=== PATIENT | female | born 1945 | race Caucasian/White ===

== ENCOUNTER 2019-11-29 14:06 | Emergency (ER) | payer MEDICARE, OTHER ==
[~2019-11-29] VITALS: Ht 165.1 cm; Wt 86.2 kg
--- OUTSIDE RECORDS SUMMARY | 2019-11-29 15:33 | XMS REPORT | Continuity of Care Document ---
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 Name Role Phone [facility] [facility] Unavailable Un available Problems Problem Status Onset Date Classification Date Reported Comments Source Chronic Reflux Esophagitis Act tonya 04/29/2013 [facility] Hypertension Active 04/29/2013 [facility] Osteopenia Active 04/29/2013 [facility] Hyperlipidemia Active 04/29/2013 [facility] Vitamin B12 Deficiency Active 04/29/2013 [facility] Depression Active 04/29/2013 [facility] Medications Medication Details Route Status Patient Instructions Ordering Provider Order Date Source AmLODIPine Besylate 2.5 MG Oral Tablet ; Start Date: 01/19/2013; End Date: (Active) Active 01/19/2013 [facility] Valsartan-Hydrochlorothiazide 160-12.5 MG Oral Tablet ; Start Date: 01/19/2013 (Active) Active 01/19/2013 [facility] Evista 60 MG Oral Tablet ; Sta rt Date: 01/19/2013 (Active) Active 01/19/2013 [facility] Sertraline HCl 50 MG Oral Tablet ; Start Date: 01/19/2013 (Active) Active 01/19/2013 [facility] Omeprazole 20 MG Oral Capsule Delayed Release ; Start Date: 01/18/2013 (Active) Active 01/18/2013 [facility] AmLODIPine Besylate 5 MG Oral Tablet ; Start Date: ; End Date: (Active) Inactive [facility] Caltrate 600+D TABS (Active) Active [facility] Multivitamins CAPS (Active) Active [facility] Vitamin B-12 1000 MCG Oral Tablet (Active) Active [facility] Fish Oil 1200 MG Oral Capsule (Active) Active [facility] Acton-3 CAPS (Active) Active [facility] Herceptin 440 MG Intravenous Solution Reconstituted (Active) Active [facility] AmLODIPine Besylate 5 MG Oral Tablet (Active) Active [facility] Allergies, Adverse Reactions, Alerts Substance Category Reaction Severity Reaction type Status Date Reported Comments Source No Known Drug Allergies drug a llergy drug aller gy Active [facility] Immunizations Immunization Date Given Site Status Last Updated Comments Source Influenza 01/05/2012 completed [facility] Hepatitis A 02/07/2009 completed [facility] Tdap 07/28/2008 completed [facility] Hepatitis A 07/28/2008 completed [facility] Results No Data Provided for This Section Pathology Reports No Data Provided for This Section Diagnostic Reports No Data Provided for This Section Consultation Notes No Data Provided for This Section Discharge Summaries No Data Provided for This Section History and Physicals No Data Provided for This Section Vital Signs No Data Provided for This Section Encounters Location Location Details Encounter Type Encounter Number Reason For Visit Attending Provider ADM Date DC Date Status Source AUDIT [id number] 02/19/2013 02/19/2013 [facility] Layton BORREGO carlos: RUDY NUÑEZ, Status: Pen, Time: 11:00 AM [id number] 02/24/20 13 02/19/2013 [facility] AUDIT [id number] 02/23/2013 02/23/2013 [facility] AUDIT [id number] 04/29/2013 04/29/2013 [facility] Procedures No Data Provided for This Section Assessment and Plan No Data Provided for This Section Plan of Care Plan of Care Date Source [QLH] LIPID PANEL 02/23/2013 Routine[QLH ] TSH, 3RD GENERATION W/REFLEX TO FT4 02/23/2013 Routine[QLH] CMP W/EGFR 02/23/2013 Routine[Q] METHYLMALONIC ACID, GC/MS/MS 02/23/2013 Routine 02/23/2013 [facility] Social History Social History Date Source Being A Social Drinker (Active) No History of Tobacco Use (Denied) No History of Drug Use (Denied) Marital History - (V61.03); (Active) 04/29/2013 [facility] Family History Value Date S ource No Maternal history of Coronary Artery D isease (Denied) Maternal history of Breast Cancer (V16.3); (Active) Paternal history of Alzheimer Disease (Active) 04/29/2013 [facility] No Maternal history of Coronary Artery D isease (Denied) Maternal history of Breast Cancer (V16.3); (Active) Paternal history of Alzheimer Disease (Active) 02/23/2013 [facility] No Maternal history of Coronary Artery D isease (Denied) Maternal history of Breast Cancer (V16.3); (Active) 02/19/2013 [facility] Advance Directives Order Name Results Value Date Source Advance Directives Advance Dir ectives No Advance Directives available. 04/29/2013 [facility] Advance Directives Advance Dir ectives No Advance Directives available. 02/23/2013 [facility] Advance Directives Advance Dir ectives No Advance Directives available. 02/19/2013 [facility] Functional Status No Data Provided for This Section
--- OUTSIDE RECORDS SUMMARY | 2019-11-29 15:33 | XMS REPORT | Clinical Summary ---
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 Active valsartan-hydrochlorothia Take 1 tablet 0 zide (DIOVAN-HCT) by mouth. 160-12.5 mg per tablet Active calcium carbonate Take 600 mg 0 (OS-DAMASO) 600 mg calcium by mouth. (1,500 mg) tablet Active omeprazole (PriLOSEC) 40 0 MG capsule 9 Active sertraline (ZOLOFT) 50 MG 0 tablet 9 Active diclofenac (VOLTAREN) 1 % APPLY TO THE 2 04/25 gel LEFT FOREARM 9 QHS Active sodium chloride 0.9% Infuse into a 0 parenteral solution 250 venous mL with INV-trastuzumab catheter. (PF) (PRO [id number]/Matute) 440 mg recon soln Active Problems Problem Noted Date Complication of breast implant 11/04/2019 Carpal tunnel syndrome, left 06/16/2018 Brachial plexopathy 06/16/2018 Encounters Care Team Description Date Type Specialty Asad Rea MD 11/04/2019 Anesthesia General Surgery Event Miranda Mckeon MD LEFT BREAST I&D W/ INSERTION OF TISSUE E XPANDER AND PREVENA WOUND VAC PLACEMENT 11/04/2019 Surgery General Surgery Ashley Galindo MD Wegge, Jacqueline Marie, MD Complication of breast implant (Primary Dx) 11/04/2019 Emergency General Surgery after 11/28/2018 Surgical History Surgery Date Site/Laterality Comments BREAST SURGERY CARPAL TUNNEL RELEASE 01/24/[address] Jeanette oviedo - 02/23/2018 INSERTION OR REMOVAL, 11/04/2019 Breast/Left Procedur e: LEFT BREAST I&D W/ INSERTION OF TISSUE TISSUE FORM BUILDER, BREAST FORM BUILDER AND PREVENA WOUND VAC PLACEMENT; Surgeon: Miranda Mckeon MD; Location: [facility] OR; Service: Plastics; Lateralit y: Left; Medical devices from this surgery are i n the Implants section. 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 Brachial plexopathy 06/16/2018 Family History Medical History Relation Name Comments Alzheimer's disease Father Cancer Mother Relation Name Status Comments Father Mother Social History Date Tobacco Use Types Packs/Day Years Used Never Smoker Smokeless Tobacco: Never Used Sex Assigned at Date Recorded Not on file Last Filed Vital Signs Reading Time Taken Comments Vital Sign 138/65 11/04/2019 7:49 PM CDT Blood Pressure 89 11/04/2019 7:49 PM CDT Pulse 36.6 C (97.8 F) 11/04/2019 7:31 PM CDT Temperature 18 11/04/2019 7:49 PM CDT Respiratory Rate 99% 11/04/2019 7:49 PM CDT Oxygen Saturation - - Inhaled Oxygen Concentration - - Weight - - Height - - Body Mass Index Plan of Treatment Health Maintenance Due Date Last Done Comments BREAST CANCER SCREENING 1994 COLONOSCOPY SCREENING 1994 SHINGLES VACCINES (#1) 1994 65+ PNEUMOCOCCAL VACCINE 2009 (1 of 1 - PPSV23) INFLUENZA VACCINE 09/25/2019 Implants Device Identifier Shelf Expiration Date Model / Serial / L ot Implanted Type Area Manufactur er [id number] / [id number] / [id number] Biometric Technician Cpx 4 Breast Tissue With Plastic or Left: Breast MENTOR Suture Tab 450cc - [id number] - Cosmetic [employer] [id number] [employer] Implanted: Qty: 1 on 11/04/2019 by or Tissue Miranda Mckeon MD at [facility] or Sets Procedures Comments Procedure Name Priority Date/Time Associated Diag nosis GRAM STAIN Timed 11/04/2019 6:22 PM CDT AEROBIC CULTURE Timed 11/04/2019 6:22 PM CDT ANAEROBIC CULTURE Timed 11/04/2019 6:22 PM CDT CA AN ELECTIVE Routine 11/04/2019 SUPRAGLOTTIC AIRWAY 6:14 PM CDT INSERTION OR REMOVAL, 11/04/2019 LEFT BREAST EXP OSED TISSUE FORM BUILDER, BREAST 5:54 PM CDT IMPLANT ECG 12-LEAD Routine 11/04/2019 5:30 PM CDT ESTIMATED GFR STAT 11/04/2019 4:13 PM CDT TYPE AND SCREEN Routine 11/04/2019 4:13 PM CDT PARTIAL THROMBOPLASTIN STAT 11/04/2019 TIME (PTT) 4:13 PM CDT PROTHROMBIN TIME WITH INR STAT 11/04/2019 4:13 PM CDT COMPREHENSIVE METABOLIC STAT 11/04/2019 PANEL 4:13 PM CDT HC COMPLETE BLD COUNT STAT 11/04/2019 W/AUTO DIFF 4:13 PM CDT after 11/28/2018 Results * Aerobic culture (11/04/2019 6:22 PM CDT) Aerobic culture Escherichia coli [facility] isolate Few [facility] susceptibility to follow HOSPITAL (A) Comment: Specimen Information Specimen Source: Wound Specimen Site: Breast: LEFT BREAST SWAB Aerobic culture Morganella morganii [facility] isolate Few [facility] susceptibility to follow HOSPITAL (A) Aerobic culture Enterococcus faecalis [facility] isolate Recovered in Broth only: [facility] Enterococcus resistant to high HOSPITAL levels of Gentamicin. Susceptibility results do not indicate synergy with Penicillins and Vancomycin. This organism is Vancomycin Sensitive. (A) Specimen Fluid - Breast Antibiotic Method Susceptibility Organism Ampicillin ASAD >16 mcg/mL: Resistant Escherichia coli Amoxicillin/Clavulanate ASAD 16/8 mcg/mL: Resistant Escherichia coli Amikacin ASAD <=8 mcg/mL: Susceptible Escherichia coli Aztreonam ASAD <=2 mcg/mL: Susceptible Escherichia coli Ceftazidime ASAD <=2 mcg/mL: Susceptible Escherichia coli Ciprofloxacin ASAD >2 mcg/mL: Resistant Escherichia coli Ceftriaxone ASAD <=1 mcg/mL: Susceptible Escherichia coli Cefuroxime Sodium ASAD 8 mcg/mL: Susceptible Escherichia coli Cefazolin ASAD 8 mcg/mL: Resistant Escherichia coli Cefepime ASAD <=1 mcg/mL: Susceptible Escherichia coli Cefoxitin ASAD <=4 mcg/mL: Susceptible Escherichia coli Gentamicin ASAD <=2 mcg/mL: Susceptible Escherichia coli Levofloxacin ASAD >4 mcg/mL: Resistant Escherichia coli Meropenem ASAD <=0.5 mcg/mL: Susceptible Escherichia coli Tobramycin ASAD >8 mcg/mL: Resistant Escherichia coli Ampicillin/Sulbactam ASAD >16/8 mcg/mL: Resistant Escherichia coli Trimethoprim/Sulfamethoxazole ASAD <=0.5/9.5 mcg/mL: Susceptible Escherichia coli Tetracycline ASAD <=2 mcg/mL: Susceptible Escherichia coli Piperacillin/Tazobactam ASAD 16/4 mcg/mL: Susceptible Escherichia coli Ertapenem ASAD <=0.25 mcg/mL: Susceptible Escherichia coli Tigecycline ASAD <=1 mcg/mL: Susceptible Escherichia coli Ampicillin ASAD >16 mcg/mL: Resistant Morganella morganii Amoxicillin/Clavulanate ASAD >16/8 mcg/mL: Resistant Morganella morganii Amikacin ASAD <=8 mcg/mL: Susceptible Morganella morganii Aztreonam ASAD <=2 mcg/mL: Susceptible Morganella morganii Ceftazidime ASAD <=2 mcg/mL: Susceptible Morganella morganii Ciprofloxacin ASAD <=0.25 mcg/mL: Susceptible Morganella morganii Ceftriaxone ASAD <=1 mcg/mL: Susceptible Morganella morganii Cefuroxime Sodium ASAD >16 mcg/mL: Resistant Morganella morganii Cefazolin ASAD >16 mcg/mL: Resistant Morganella morganii Cefepime ASAD <=1 mcg/mL: Susceptible Morganella morganii Cefoxitin ASAD 8 mcg/mL: Susceptible Morganella morganii Gentamicin ASAD <=2 mcg/mL: Susceptible Morganella morganii Levofloxacin ASAD <=0.5 mcg/mL: Susceptible Morganella morganii Meropenem ASAD >8 mcg/mL: Resistant Morganella morganii Tobramycin ASAD <=2 mcg/mL: Susceptible Morganella morganii Ampicillin/Sulbactam ASAD 16/8 mcg/mL: Resistant Morganella morganii Trimethoprim/Sulfamethoxazole ASAD <=0.5/9.5 mcg/mL: Susceptible Morganella morganii Tetracycline ASAD <=2 mcg/mL: Resistant Morganella morganii Piperacillin/Tazobactam ASAD 32/4 mcg/mL: Resistant Morganella morganii Ertapenem ASAD >2 mcg/mL: Resistant Morganella morganii Tigecycline ASAD mcg/mL: Resistant Morganella morganii Ceftazidime-Avibactam ASAD >8/4 mcg/mL: Resistant Morganella morganii Meropenem/Vaborbactam ASAD >16/8 mcg/mL: Resistant Morganella morganii Ampicillin ASAD 1 mcg/mL: Susceptible Enterococcus faecalis Erythromycin ASAD >4 mcg/mL: Resistant Enterococcus faecalis Gentamicin-Syn ASAD >500 mcg/mL: Resistant Enterococcus faecalis Linezolid ASAD 2 mcg/mL: Susceptible Enterococcus faecalis Minocycline ASAD >8 mcg/mL: Resistant Enterococcus faecalis Vancomycin ASAD 1 mcg/mL: Susceptible Enterococcus faecalis Performing Organization Address City/[facility] [address]/ZIP Code [place] Number [facility] [place] [address] PATHOLOGY AND [facility] MEDICINE [place] [facility] [address] [place] [address] * Gram stain (11/04/2019 6:22 PM CDT) Gram stain Occasional WBC's [place] isolate No organisms seen [facility] Comment: HOSPITAL Specimen Information Specimen Source: Wound Specimen Site: Breast: LEFT BREAST SWAB Specimen Wound Performing Organization Address [facility] [address]/ZIP [facility] P [place]arien Number [facility] [place] [address] PATHOLOGY AND GENOMIC MEDICINE [place] [facility] [address] [place] [address] * Anaerobic culture (11/04/2019 6:22 PM CDT) Anaerobic No anaerobic organisms [place] culture isolate isolated. [facility] Comment: HOSPITAL Specimen Information Specimen Source: Wound Specimen Site: Breast: LEFT BREAST SWAB Specimen Fluid - Breast Performing Organization Address City/[facility] [address]/ZIP Code [place] Number [facility] [place] [address] PATHOLOGY AND [facility] MEDICINE [place] [facility] [address] [place] [address] * Airway (11/04/2019 6:14 PM CDT) Narrative Performed At Aashish Mccall CRNA 11/04/2019 6:1 4 PM Airway Performed by: Aashish Mccall CRNA Authorized by: Asad Rea MD Location: OR Urgency: Elective Difficult Airway: No Anesthesiologist: Charly Rea MD Resident/ECONOMIC HISTORY TEACHER/AA: Aashish Mccall CRNA Performed by: resident/ECONOMIC HISTORY TEACHER/AA Preoxygenated with 100% O2: Yes Mask Ventilation: Not attempted Final Airway Type: Supraglottic airwa y Final LMA: Unique LMA Size: 4 Number of Attempts at Approach: 1 Atraumatic insertion * ECG 12 lead (11/04/2019 5:30 PM CDT) Ventricular 100 [facility] rate Atrial rate 100 [facility] CA interval 130 [facility] QRSD interval 80 [facility] QT interval 336 [facility] QTC interval 433 [facility] P axis 1 62 [facility] QRS axis 1 11 [facility] T wave axis 47 [facility] EKG impression Sinus rhythm with fusion [facility] complexes-Otherwise normal ECG-No previous ECGs available- Specimen Narrative Performed At This result has an attachment that is n ot available. Performing Organization Address City/State/ZIP Code P [place] Number [facility] MUSE [address] [place] [address] * Estimated GFR (11/04/2019 4:13 PM CDT) Pathologist [facility] Estimated GFR 63 mL/min/1.73 m2 [place] Comment: [facility] CLEAR [facility] Interpretation G1 >=90 Normal or high G2 60-89 Mildly decreased G3a 45-59 Mildly to moderately decreased G3b 30-44 Moderately to severely decreased G4 15-29 Severely decreased G5 <15 Kidney failure The eGFR was calculated using the Chronic Kidney Disease Epidemiology Collaboration (CKD-EPI) equation. Interpretation is based on recommendations of the National Kidney Foundation-Kidney Disease Outcomes Quality Initiative (NKF-KDOQI) published in 2014. Specimen Performing Organization Address City/State/ZIP Code [place] Number [facility] [place] [id number] [place] [address] [place], [place] [address] PATHOLOGY AND GENOMIC MEDICINE [place] [id number] [place] [address] [place] [address] [facility] [place] * Partial thromboplastin time, activated (11/04/2019 4:13 PM CDT) Pathologist [facility] PTT 27.0 23.0 - 36.0 sec [place] Comment: [facility] PTT therapeutic range for [facility] [place] unfractionated heparin is 61.0-112.0 seconds which corresponds to Anti-Xa 0.3-0.7 U/ml. Specimen Blood Performing Organization Address City/[facility] [address]/ZIP [facility] P [place]arien Number [facility] DE[facility]MENT OF [address] [place] [address] PATHOLOGY AND GENOMIC MEDICINE [address] * Prothrombin time with INR (11/04/2019 4:13 PM CDT) [facility] Prothrombin 14.4 11.5 - 14.5 sec [facility] INR 1.1 [place] Comment: [facility] The International Normalized [facility] [place] Ratio (INR) is a therapeutic monitoring tool for patients who are stable on oral anticoagulant therapy. An INR of 2.0-3.0 is suggested for deep vein thrombosis/pulmonary embolism. Specimen Blood Performing Organization Address City/[facility] [address]/[facility] P [place] Number [facility] OF [address] [place] [address] PATHOLOGY AND [facility] MEDICINE [address] * CBC with platelet and differential (11/04/2019 4:13 PM CDT) [facility] WBC 7.03 4.50 - 11.00 k/uL [facility] RBC 3.24 (L) 4.20 - 5.50 m/uL [facility] HGB 9.0 (L) 12.0 - 16.0 g/dL [facility] HCT 29.3 (L) 37.0 - 47.0 % [facility] MCV 90.4 82.0 - 100.0 fL [facility] MCH 27.8 27.0 - 34.0 pg [facility] MCHC 30.7 (L) 31.0 - 37.0 g/dL [facility] RDW - SD 63.2 (H) 37.0 - 55.0 fL [facility] MPV 9.1 8.8 - 13.2 fL [facility] Platelet count 294 150 - 400 k/uL [facility] Nucleated RBC 0.00 /100 WBC [facility] Neutrophils 69.6 (H) 39.0 - 69.0 % [facility] Lymphocytes 16.1 (L) 25.0 - 45.0 % [facility] Monocytes 11.7 (H) 0.0 - 10.0 % [facility] Eosinophils 1.3 0.0 - 5.0 % [facility] Basophils 0.9 0.0 - 1.0 % [facility] Specimen Blood Performing Organization Address [facility] [address]/[facility] P [place] Number [address] [place] [address] PATHOLOGY AND GENOMIC MEDICINE [address] * Type and screen (11/04/2019 4:13 PM CDT) Pathologist [facility] ABO grouping O [facility] Rh type POS [facility] Antibody screen NEG [place] (gel) [facility] Specimen Blood Performing Organization Address [facility] [address]/[facility] P [place]ari[place] Number [address] [place] [address] PATHOLOGY AND GENOMIC MEDICINE [address] * Comprehensive metabolic panel (11/04/2019 4:13 PM CDT) Sodium 137 135 - 148 mEq/L [facility] Potassium 3.4 (L) 3.5 - 5.0 mEq/L [facility] Chloride 100 98 - 112 mEq/L [facility] CO2 27 24 - 31 mEq/L [facility] Anion gap 10@ANIO 7 - 15 mEq/L [facility] BUN 10 8 - 23 mg/dL [facility] Creatinine 0.90 0.50 - 0.90 mg/dL [facility] Glucose 104 (H) 65 - 99 mg/dL [facility] Calcium 10.2 8.8 - 10.2 mg/dL [facility] Protein 8.2 6.3 - 8.3 g/dL [place] Comment: [facility] Bells 4.6-7.0 g/dL 1 week 4.4-7.6 g/dL 7 months-1year 5.1-7.3 g/dL 1-2 years 5.6-7.5 g/dL >3 years 6.0-8.0 g/dL 18-150 6.3-8.3 g/dL Albumin 4.4 3.5 - 5.0 g/dL [facility] A/G ratio 1.2 0.7 - 3.8 [facility] Alkaline 114 (H) 35 - 104 U/L [place] phosphatase [facility] AST 25 10 - 35 U/L [facility] ALT 16 5 - 50 U/L [facility] Total bilirubin 0.6 0.0 - 1.2 mg/dL [facility] Specimen Blood Performing Organization Address City/State/ZIP Code [place] [facility] [address] [place], [place] [address] PATHOLOGY AND GENOMIC MEDICINE [facility] [address] [place] [address] [facility] [place] after 11/28/2018 Insurance Type Payer Benefit Subscriber ID Effective Phone Address Plan / Dates Group Medicare MEDICARE MEDICARE [id number] 2009-P BUDDY, PART A AND resent [place] B Commercial [employer] M[employer] OF [id number] 2010-P CARI loco Advance Directives For more information, please contact: [phone] 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
--- OUTSIDE RECORDS SUMMARY | 2019-11-29 15:34 | XMS REPORT | Continuity of Care Document ---
Author Author [facility] t Organization [facility] Address [address] [place] [address] Phone Unavailable Care Team Providers Care Channel Marketing Coordinator Name Role Phone Fely WHITMAN, Emily Suarez PCP Mateo WHITMAN, Elaina Ramirez Attphys Mike WHITMAN, Emily Jean Attphys [phone] Álvaro WHITMAN, Scotty Kamara Attphys [phone] Payers Payer Name Policy Type Policy Number Effective Date Expiration Date S momo MEDICAREMEDICARE PART A AND [id number] 2009-PresentHOUS HEENA TXMedicare [id number] 2009 00:00:00 [place] [facility] MUTUAL OF OMAHAMUTUAL OF [id number] 2010-PresentCommercia l [id number] 2010 00:00:00 [place] [facility] Problems Condition Name Condition Details Condition Category Status Onset Date Resolution Date Last Treatment Date Treating Clinician Comments Source 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 Disea se Active 2019-11-04 00:00:00 Kasi Allen Carpal tunnel syndrome, left Carpal tunnel syndrome, left Disease Active 2018-06-16 00:00:00 Kasi Allen Brachial plexopathy Brachial plexopathy Disease Active 2018-06-16 00:00 :00 Kasi Allen Chronic Reflux Esophagitis Chr onic Reflux Esophagitis Active 04/29/2013 [facility] Problem Active 2013-04-29 16:35: 01 Stephanie Tatum Hypertension Hype rtension Active 04/29/2013 [facility] Problem Active 2013-04-29 16:35:01 Enmanuel lashaunl Rc Osteopenia Oste openia Active 04/29/2013 [facility] Problem Active 2013-04-29 16:35:01 Stephanie Tatum Hyperlipidemia Hype rlipidemia Active 04/29/2013 [facility] Problem Active 2013-04-29 16:35:01 M emoriamor Tatum Vitamin B12 Deficiency Stacey min B12 Deficiency Active 04/29/2013 [facility] Problem Active 2013-04-29 16:35:01 Stephanie Tatum Depression Depr ession Active 04/29/2013 [facility] Problem Active 2013-04-29 16:35:01 [address] Allergies, Adverse Reactions, Alerts Allergy Name Allergy Type Status Severity Reaction(s) Onset Date Inacti ve Date Treating Clinician Comments Source No Known Drug Allergies DA Active U 2019-10-11 00:00:00 [facility] adhesive DA Active [place] 2019-10-11 00:00:00 [facility] No Known Drug Allergies DA Active U 2019-10-07 00:00:00 [facility] adhesive DA Active [place] 2019-03-22 00:00:00 [facility] adhesive DA Active [place] 2018-07-31 00:00:00 [facility] latex DA Active SV 2017-11-12 00:00:00 [facility] adhesive DA Active [place] 2017-10-15 00:00:00 [facility] Latex Propensity to adverse reactions to drug Active Hives, Rash 2015-04-06 00:00:00 Kasi ramirez No Known Drug Allergies No Known Drug Allergies Active [facility] Family History Family Member Diagnosis Comments Start Date Stop Date Source Natural father Alzheimer's disease H debra Easonist Natural mother Cancer [facility] thodist Unknown Family Member Family History 2013-02-19 20:48:48 2 20:48:48 Stephanie Tatum Social History Social Habit Start Date Stop Date Quantity Comments Source Sex Assigned At [facility] Tobacco use and exposure 2019-11-05 00:00:00 2019-11-05 00:00:00 Farnaz smiley used Kasi Allen Social History 2013-04-29 16:35:01 2013-04-29 16:35:01 Stephanie Tatum Smoking Status Start Date Stop Date Source Never smoker Kasi ramirez Medications Ordered Medication Name Filled Medication Name Start Date Stop Da te Current Medication? Ordering Clinician Indication Dosage Frequency Signature (SIG) Comments Components Source raloxifene (EVISTA) 60 mg tablet 2019-11-04 20:16:40 Yes 60mg Take 60 mg by mouth. Kais Allen valsartan-hydrochlorothiazide (DIOVAN-HCT) 160-12.5 mg per t ablet 2019-11-04 20:16:40 Yes 1{tbl} Take 1 tablet by mouth. Kasi Allen calcium carbonate (OS-DAMASO) 600 mg calcium (1,500 mg) tablet 2019-11-04 20:16:40 Yes 600mg Take 600 mg by mouth. Kasi Allen sodium chloride 0.9% parenteral solution 250 mL with INV-trastuzumab (PF) (PRO [id number]/Matute) 440 mg recon soln 2019-11-04 20:16:40 Yes Infuse into a venous catheter. Kasi ramirez sertraline (ZOLOFT) 50 MG tablet 2018-06-04 00:00:00 Yes Kasi Allen LYRICA 225 mg capsule 2018-06-02 00:00:00 Yes TK 1 C PO D Kasi Allen omeprazole (PriLOSEC) 40 MG capsule 2018-05-29 00:00:00 Yes Kasi Allen diclofenac (VOLTAREN) 1 % gel 2018-05-21 00:00:00 Yes APPLY TO THE LEFT FOREARM QHS Kasi Allen Caltrate 600+D TABS 2013-04-29 16:35:01 Yes (Active) Stephanie Tatum Multivitamins CAPS 2013-04-29 16:35:01 Yes (Active) Stephanie Tatum Vitamin B-12 1000 MCG Oral Tablet 2013-04-29 16:35:01 Yes (Active) Stephanie Tatum Fish Oil 1200 MG Oral Capsule 2013-04-29 16:35:01 Yes (Active) Stephanie Tatum Garrett-3 CAPS 2013-04-29 16:35:01 Yes (Activ e) Stephanie Tatum Herceptin 440 MG Intravenous Solution Reconstituted 04-29 16:35:01 Yes (Active) Stephanie aguilera AmLODIPine Besylate 5 MG Oral Tablet 2013-04-29 16:35:01 Ye s (Active) Stephanie Tatum AmLODIPine Besylate 2.5 MG Oral Tablet 2013-01-19 06:00:00 Yes ; Start Date: 01/19/2013; End Date: (Active) Stephanie Tatum Valsartan-Hydrochlorothiazide 160-12.5 MG Oral Tablet 2013-01-19 06:00:00 Yes ; Start Date: 01/19/2013 (Active) Stephanie Tatum Evista 60 MG Oral Tablet 2013-01-19 06:00:00 Yes ; Start Date: 01/19/2013 (Active) Stephanie Tatum Sertraline HCl 50 MG Oral Tablet 2013-01-19 06:00:00 Yes ; Start Date: 01/19/2013 (Active) Stephanie Harvey nn Omeprazole 20 MG Oral Capsule Delayed Release 2013-01-18 06:00:0 0 Yes ; Start Date: 01/18/2013 (Active) Stephanie Tatum AmLODIPine Besylate 5 MG Oral Tablet Ye s ; Start Date: ; End Date: (Active) Stephanie Tatum Vital Signs Vital Name Observation Time Observation Value Comments Source Systolic blood pressure 2019-11-04 19:49:00 138 mm[Hg] Kasi Allen Diastolic blood pressure 2019-11-04 19:49:00 65 mm[Hg] Kasi Allen Heart rate 2019-11-04 19:49:00 89 /min Kasi Allen Respiratory rate 2019-11-04 19:49:00 18 /min Orestes Allen Oxygen saturation in Arterial blood by Pulse oximetry 11-03 19:49:00 99 /min Kasi Allen Body temperature 2019-11-04 19:31:00 36.56 Rola Orestes Allen Procedures Procedure Date / Time Performed Performing Clinician Agatha wilde ANAEROBIC CULTURE 2019-11-04 18:22:00 Miranda Girard AEROBIC CULTURE 2019-11-04 18:22:00 Miranda Girard GRAM STAIN 2019-11-04 18:22:00 Miranda Girard RI AN ELECTIVE SUPRAGLOTTIC AIRWAY 2019-11-04 18:14:32 Jens Mccall INSERTION OR REMOVAL, TISSUE MACHINE OR MACHINERY MECHANIC, BREAST 2019-11-04 17: 54:00 Miranda Girard ECG 12-LEAD 2019-11-04 17:30:37 Ashley Galindo Elaina Lucia ethodist HC COMPLETE BLD COUNT W/AUTO DIFF 2019-11-04 16:13:00 Hukellie, Kari in Elaina Allen COMPREHENSIVE METABOLIC PANEL 2019-11-04 16:13:00 Ashley Galindo I clemente Allen PROTHROMBIN TIME WITH INR 2019-11-04 16:13:00 Hukellie, Ashley Allen PARTIAL THROMBOPLASTIN TIME (PTT) 2019-11-04 16:13:00 Hukellie, Kari in Elaina [facility] TYPE AND SCREEN 2019-11-04 16:13:00 Ashley Galindo Villaseñor Khari ethodist ESTIMATED GFR 2019-11-04 16:13:00 Hukellie Ashley Villaseñor ethodist Plan of Care Planned Activity Planned Date Details Comments Source Future Scheduled Test 2019-09-25 00:00:00 INFLUENZA VACCINE [code = INFLUENZA VACCINE] [facility] Future Scheduled Test 2013-02-23 17:47:49 Plan of Care [code = 1877 6-5] [facility] Future Scheduled Test 2009 00:00:00 65+ PNEUMOCOCCAL V ACCINE (1 of 1 - PPSV23) [code = 65+ PNEUMOCOCCAL VACCINE (1 of 1 - PPSV23)] [facility] Future Scheduled Test 1994 00:00:00 BREAST CANCER SCRE ENING [code = BREAST CANCER SCREENING] [facility] Future Scheduled Test 1994 00:00:00 COLONOSCOPY SCREEN ING [code = COLONOSCOPY SCREENING] [facility] Future Scheduled Test 1994 00:00:00 SHINGLES VACCINES (#1) [code = SHINGLES VACCINES (#1)] [place] [facility] Encoun[facility] Start Date/Time End Date/Time Encounter Type Admission Type [facility] Care Department Encounter ID Source 2019-11-04 00:00:00 2019-11-04 00:00:00 Outpatient RACHNA GIRARD [facility] [place] [id number] [place] [facility] 2013-04-29 10:35:01 2013-04-29 10:35:01 Outpatient STORMY BURROWS [id number] 2013-02-23 11:47:49 2013-02-23 11:47:49 Outpatient STOR[facility] BURROWS [id number] 2013-02-19 14:48:48 2013-02-19 14:48:48 Outpatient STORMY BURROWS [id number] Results Test Description Test Time Test Comments Results Result Comments Source Anaerobic culture 2019-11-09 09:23:40 Test Item Anaerobic culture isolate (test code = 552) No anaerobic organis ms isolated. Specimen InformationSpecimen Source: Wou ndSpecimen Site: Breast: LEFT BREAST SWAB [facility] SikhGram [id number] 05:41:28Gram stain isolateOccasional WBC'sNo organisms seen Comment: Specimen InformationSpecimen Source: WoundSpecimen Site: Breast: [facility] [id number] 13:06:56* Test Item Value Reference Range Interpretation Comments Ventricular rate (test code = 253) 100 Atrial rate (test code = 255) 100 RI interval (test code = 266) 130 QRSD interval (test code = 260) 80 QT interval (test code = 264) 336 QTC interval (test code = 265) 433 P axis 1 (test code = 267) 62 QRS axis 1 (test code = 268) 11 T wave axis (test code = 270) 47 EKG impression (test code = 273) Sinus rhythm with fus ion complexes-Otherwise normal ECG-No previous ECGs available- [place] [id number] 18:14:32Aashish Mccall CRNA 11/04/2019 6:14 PMAirwayPerformed by: Aashish Mccall CRNAAuthorized by: Asad Rea MD Location: ORUrgency: ElectiveDifficult Airway: No Anesthesiologist: Asad Rea, CELESTINEesident/SHEAR TENDER/AA: Ali, Aashish, CRNAPerformed by: resident/SHEAR TENDER/AAPreoxygenated with 100% O2: Yes Mask Ventilation: Not attemptedFinal Airway Type: Supraglottic airwayFinal LMA: UniqueLMA Size: 4Number of Attempts at Approach: 1 Atraumatic insertion Villaseñor MethodistType and [id number] 16:56:00* Test Item Value Reference Range Interpretation Comments ABO grouping (test code = 883-9) O Rh type (test code = 29133-3) POS Antibody screen (gel) (test code = 890-4) NEG [place] MethodistComprehensive metabolic [id number] 16:46:36* Test Item Value Reference Range Interpretation Comments Sodium (test code = 2951-2) 137 135- 148 mEq/L Potassium (test code = 2823-3) 3.4 3.5- 5.0 mEq/L L Chloride (test code = 2075-0) 100 98- 112 mEq/L CO2 (test code = 2027-9) 27 24- 31 mEq/L Anion gap (test code = 88347-3) 10@ANIO 7- 15 mEq/L BUN (test code = 3094-0) 10 mg/dL 8-23 Creatinine (test code = 2160-0) 0.90 mg/dL 0.5-0.9 Glucose (test code = 2345-7) 104 mg/dL 65-99 H Calcium (test code = 01934-3) 10.2 mg/dL 8.8-10.2 Protein (test code = 2885-2) 8.2 g/dL 6.3-8.3 -[place] 4.6- 7.0 g/dL1 week 4.4-7.6 g/dL7 months-1year 5.1-7.3 g/dL1-2 years 5.6-7.5 g/dL>3 years 6.0-8.0 g/wO32-259 6.3-8.3 g/dL Albumin (test code = 1751-7) 4.4 g/dL 3.5-5 A/G ratio (test code = 1759-0) 1.2 0.7-3.8 Alkaline phosphatase (test code = 6768-6) 114 U/L 35-104 H AST (test code = 1920-8) 25 U/L 10-35 ALT (test code = 1742-6) 16 U/L 5-50 Total bilirubin (test code = 1975-2) 0.6 mg/dL 0-1.2 Lab Interpretation (test code = 49508-9) Abnormal [place] MethodistEstimated [id number] 16:46:35* Test Item Value Reference Range Interpretation Comments Estimated GFR (test code = 5488) 63 mL/min/1.73 m2 Catergory Units InterpretationG1 >=90 Normal or highG2 60-89 Mildly yvjxxacbwQ4l 45-59 Mildly to moderately hbyoulfzsU5v 30-44 Moderately to severely decreasedG4 15-29 Severely decreasedG5 <15 Kidney failureThe eGFR was calculated using the Chronic Kidney Disease Epidemiology Collaboration (CKD-EPI) equation. Interpretation is based on recommendations of the National Kidney Foundation-Kidney Disease Outcomes Quality Initiative (NKF-KDOQI) published in 2014. [place] MethodistProthrombin time with [id number] 16:36:35* Test Item Value Reference Range Interpretation Comments Prothrombin time (test code = 5902-2) 14.4 11.5- 14.5 sec INR (test code = 21152-2) 1.1 Th e International Normalized Ratio (INR) is a therapeutic monitoring tool for patients who are stable on oral anticoagulant therapy. An INR of 2.0-3.0 is suggested for deep vein thrombosis/pulmonary embolism. [place] MethodistPartial thromboplastin time, [id number] 16:36:35* Test Item Value Reference Range Interpretation Comments PTT (test code = 89759-2) 27.0 23.0- 36.0 sec PTT therapeutic range for unfractionated heparin is61.0-112.0 seconds which corresponds to Anti-Xa0.3-0.7 U/ml. [place] MethodistCBC with platelet and apkqsxbqnppg2607-63-71 16:28:30* Test Item Value Reference Range Interpretation Comments WBC (test code = 16708-4) 7.03 4.50- 11.00 k/uL RBC (test code = 33337-9) 3.24 m/uL 4.2-5.5 L HGB (test code = 718-7) 9.0 g/dL 12-16 L HCT (test code = 4544-3) 29.3 % 37-47 L MCV (test code = 787-2) 90.4 fL 82-100 MCH (test code = 785-6) 27.8 pg 27-34 MCHC (test code = 786-4) 30.7 g/dL 31-37 L RDW - SD (test code = 09200-6) 63.2 fL 37-55 H MPV (test code = 34914-6) 9.1 fL 8.8-13.2 Platelet count (test code = 39478-6) 294 150- 400 k/uL Nucleated RBC (test code = 55409-6) 0.00 /100 WBC Neutrophils (test code = 56427-6) 69.6 % 39-69 H Lymphocytes (test code = 82865-0) 16.1 % 25-45 L Monocytes (test code = 26910-2) 11.7 % 0-10 H Eosinophils (test code = 71879-1) 1.3 % 0-5 Basophils (test code = 66778-4) 0.9 % 0-1 Lab Interpretation (test code = 25646-5) Abnormal [facility]- XR FLUORO FOR SPINE [id number] 12:19:00 Patient Name: SUZETTE MARTINEZ Unit No: [id number] EXAMS: CPT CODE: [id number] XR FLUORO FOR SPINE INJ 16429 CERVICAL TRANSFORAMINAL INJECTION REFERRING PHYSICIAN: PREOPERATIVE DIAGNOSIS: Cervical radiculitis POSTOPERATIVE DIAGNOSIS: Left cervical radiculopathy PROCEDURES PERFORMED: Fluoroscopically guided needle localization of the left C6, left C7 spinal nerves with transforaminal epidural steroid injection/injections. 2. Transforaminal epidurogram/epidurograms at left C6, left C7 FINDINGS: Poor filling all. Concordant provocation left C7 arm, left C6 shoulder. Pain relief-100%. ANTIBIOTICS:Cefazolin ESTIMATED BLOOD LOSS: Minimal ANESTHESIA: (TIVA ) Total intrav enous anesthetic (patient intolerant to sedatives and hypnotics) COMPLICATIONS: None DETAILS OF PROCEDURE: After obtaining sta ble vital signs, informed consent and IV access, with no known contraindic ations to proceeding, the patient was taken to the fluoroscopy suite and p laced in a supine position with all extremities padded and appropriate mon itors placed. A sterile prep and drape was performed over the cervical spi ne. Using fluoroscopic visualization at each level the insertion s ite was marked for a paravertebral approach to the foramen. Using standard technique, a 27gauge needle was advanced to the base of the pedicle. In AP view, final positioning was obtained outside the 6 on a clock posi tion on the pedicle. Then, 0.5 ml of Isovue-300 contrast was injected to p roduce the epidurograms. No paresthesias were elicited with needle inserti on or injection and there were no signs of intravascular or intrathecal up take. Then, 0.5 ml of 4% lidocaine was injected as a test dose with no sig ns of intravascular or intrathecal uptake. Next, 10 mg of Decadron was injected incrementally with frequent negative aspirations.Each subsequent cervical nerve root sleeve was done with the same technique and medication s were used.There were no signs of intravascular or intrathecal uptake. Th e patient's vital signs remained stable. The patient was taken to the PACU in good condition. [facility] NAME: SUZETTE GONSALVES [address] [place] [address] PHYS: Chandana Forman MD [place] [address] : 1945 A GE: 74 SEX: F L OC: [place] PHONE #: [phone] EXAM DATE: 10/11/2019 STATU S: [facility] FAX #: [phone] RAD #: D/C DT PAGE 1 Signed Report (CONTIN UED) Patient Name: SUZETTE MARTINEZ Unit No: [id number] EX AMS: CPT CODE: [id number] XR FLUORO FOR SPINE INJ 28918 <Continued> at 1219 Reported and signed by: Chandana Medrano M.D. CC: Technologist: Maegan Rajput(R) Transcribed D/ (2139) Ezequiel [facility] NAME: SUZETTE MARTINEZ [address] [place] [address] PHYS: Chandana Forman MD [place], [place] [address] : 1945 AGE: 74 SEX: F LOC: [place] PHONE #: [phone] EXAM DATE: 10/11/2019 STATUS: [facility] FAX #: [phone] RAD #: D/C DT PAGE 2 S igned Report Patient Name: SUZETTE MARTINEZ Unit No: [id number] EXAMS: CPT CODE: [id number] XR FLUORO FOR SPINE INJ 7 7000 <Continued> Orig Print D/T: S: 10/11/2019 (1222) [facility] NAME: SUZETTE MARTINEZ [address] [facility] PHYS: DOCUD - Doctor,Chandana Dao MD [place], [place] [address] : 1945 AGE: 74 SEX: F LOC: [place] PHONE #: [phone] EXAM DATE: 10/11/2019 STATUS: [facility] FAX #: [phone] RAD #: D/C DT PAGE 3 Signed Report [id number] 14:51:00 RUN DATE: 10/01/19 [place] - Lab PAGE 1 RUN TIME: 1452 Specimen Inqui ry RUN USER: INTERFACE PATIENT: SUZETTE MARTINEZ ACCT #: [id number] LOC: [facility] U #: [id number] AGE/SX: 74/F ROOM: RE09/30/19REG DR: Miranda Girard MD : 43 BED: DIS: STATUS: [facility] TLOC: SPEC #: [id number] RECD: 09/30/19 STATUS: JHON REElinor #: [id number] HA: 09/30/19- SUBM DR: Miranda Girard MD ENTERED: 09/30/19 SP TYPE: BREAST OTHR DR: Daniela Turcios MD ORDERED: [place]OSS [place]: [place] [id number] [place] [address] Miranda Girard MD [address] [address] PROCEDURES: GROSS (-1410) TISSUES: 1. LEFT BREAST, NOS - FLAP 2. 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 FINAL DI AGNOSIS Left breast flap, excision: ADIPOSE TISSUE WITH FIBROSIS AND A TROPHIC SKELETAL MUSCLE NEGATIVE FOR MALIGNANCY Left breast skin, e xcision: SKIN WITH SOME FOCAL FOREIGN BODY GIANT CELL REACTION NEG ATIVE FOR MALIGNANCY DMW/gm D 93717, [address]43 CONTINUED ON NEXT PAGE RUN DATE: 10/01/19 [place] [facility] PAGE 2 RUN TIME: 1452 Specimen Inquiry RUN USER: INTERFACE SPEC #: [id number] PATIENT: SUZETTE MARTINEZ #[id number] (Continue d) MACROSCOPIC Specimen (1) is received in formalin la beled with the patient's name, "left breast flap" and consists of an unoriente d portion of yellow lobulated fatty breast tissue measuring 11.0 x 10.0 by up to 3.2 cm. Smooth glistening pink-mendes tissue resembling capsule is present on one surface. This measures 6.5 x 4.0 cm in area. Sectioning through the ti ssue shows fatty breast parenchyma with a minimal amount of fibrous tissue. N o focal lesions are identified. Ink code: Blue, surgical margin S ection code: 1A, section with capsule; 1B, section with capsule and fibrous t issue. Specimen (2) is received in formalin labeled with the patient's nam e, "left breast skin" and consists of multiple portions of light mendes-pink skin measuring 6.0 x 5.0 by up to 1.7 cm in aggregate. The individual ellipses me asure up to 7.0 x 0.6 x 0.2 cm. No focal lesions are identified. Representa tive portions of tissue are submitted as (2). GROSS PERFORMED AT [facility] [address] [place] [address] (P)[phone] MICROSCOPIC All of the sta ins, including any controls performed, stain appropriately. MICROSCOPIC PERFORMED AT [facility] [address] [place] [address] (P)[phone] PERFORMING SITE Proc essed at: [facility] [address] [place] [address] [phone] CONTINUED ON NEXT PAGE -RUN DATE: 10/01/19 [place] - Lab PAGE 3 RUN TIME: 1451 Specimen Inquiry RUN USER: INTERFACE SPEC #: [id number] PATIENT: SUZETTE MARTINEZ #[id number] (Continued) Signed SIGNATURE ON F ILE Gavi Booker MD 10/01/19 1451 END OF REPORT COMPREHENSIVE METABOLIC [id number] 11:58:00* Test Item Value Reference Range Interpretation Comments SODIUM (test code = NA) 139 mmol/L 136-145 N POTASSIUM (test code = K) 3.7 mmol/L 3.5-5.1 N CHLORIDE (test code = CL) 103.0 mmol/L 98-107 N CARBON DIOXIDE (test code = CO2) 29.0 mmol/L 21-32 N ANION GAP (test code = GAP) 10.7 10-20 N GLUCOSE (test code = GLU) 117 mg/dL 74-106 H BLOOD UREA NITROGEN (test code = BUN) 9 mg/dL 7-18 N GLOMERULAR FILTRATION RATE (test code = GFR) > 60 mL/min >=60 Estimated GFR by using Modified MDRD formula.Chronic kidney disease is defined as either kidney damageor GFR <60 mL/min/1.73 m2 for >3 months. CREATININE (test code = CREAT) 0.90 mg/dL 0.55-1.02 N Note change in reference range due to change in reagent. BUN/CREATININE RATIO (test code = BUN/CREA) 10.5 10-20 N TOTAL PROTEIN (test code = PROT) 7.7 gram/dL 6.4-8.2 N ALBUMIN (test code = ALB) 3.7 g/dL 3.4-5.0 N GLOBULIN (test code = GLOB) 4.0 gram/dL 2.7-4.2 N ALBUMIN/GLOBULIN RATIO (test code = A/G) 0.9 0.75-1.50 N CALCIUM (test code = CA) 8.7 mg/dL 8.5-10.1 N BILIRUBIN TOTAL (test code = BILT) 0.80 mg/dL 0.0-1.0 N SGOT/AST (test code = AST) 41 IUnit/L 15-37 H SGPT/ALT (test code = ALT) 55 IUnit/L 12-78 N ALKALINE PHOSPHATASE TOTAL (test code = ALKP) 81 IUnit/L 45-117 N Note change in reference range due to change in reagent. COMPREHENSIVE METABOLIC [id number] 11:43:00* Test Item Value Reference Range Interpretation Comments SODIUM (test code = NA) 139 mmol/L 136-145 N POTASSIUM (test code = K) 3.7 mmol/L 3.5-5.1 N CHLORIDE (test code = CL) 103.0 mmol/L 98-107 N CARBON DIOXIDE (test code = CO2) mmol/L 21-32 ANION GAP (test code = GAP) 10-20 GLUCOSE (test code = GLU) mg/dL 74-106 BLOOD UREA NITROGEN (test code = BUN) mg/dL 7-18 GLOMERULAR FILTRATION RATE (test code = GFR) mL/min >=60 CREATININE (test code = CREAT) mg/dL 0.55-1.02 BUN/CREATININE RATIO (test code = BUN/CREA) 10-20 TOTAL PROTEIN (test code = PROT) gram/dL 6.4-8.2 ALBUMIN (test code = ALB) g/dL 3.4-5.0 GLOBULIN (test code = GLOB) gram/dL 2.7-4.2 ALBUMIN/GLOBULIN RATIO (test code = A/G) 0.75-1.50 CALCIUM (test code = CA) mg/dL 8.5-10.1 BILIRUBIN TOTAL (test code = BILT) mg/dL 0.0-1.0 SGOT/AST (test code = AST) IUnit/L 15-37 SGPT/ALT (test code = ALT) IUnit/L 12-78 ALKALINE PHOSPHATASE TOTAL (test code = ALKP) IUnit/L 45-117 COVID 19 Asymptomatic IH [id number] 11:43:00* Test Item Value Reference Range Interpretation Comments COVID 19 Asymptomatic IH AG (test code = COVNONPUIAG) NEGATIVE CBC W/AUTO [id number] 11:33:00* Test Item Value Reference Range Interpretation Comments WHITE BLOOD CELL (test code = WBC) 6.3 K/mm3 4.5-12.5 N RED BLOOD CELL (test code = RBC) 3.57 mill/mm3 3.7-5.2 L HEMOGLOBIN (test code = HGB) 10.9 gram/dL 11.5-15.5 L HEMATOCRIT (test code = HCT) 34.3 % 36.0-46.0 L MEAN CELL VOLUME (test code = MCV) 96.1 fL 80-98 N MEAN CELL HGB (test code = MCH) 30.5 picogram 27.0-33.0 N MEAN CELL HGB CONCETRATION (test code = MCHC) 31.8 gram/dL 33.0-36. 0 L RED CELL DISTRIBUTION WIDTH (test code = RDW) 14.6 % 11.6-16. 2 N RED CELL DISTRIBUTION WIDTH SD (test code = RDW-SD) 51.5 fL 37 .0-51.0 H PLATELET COUNT (test code = PLT) 173 K/mm3 150-450 N MEAN PLATELET VOLUME (test code = MPV) 9.7 fL 6.7-11.0 N NEUTROPHIL % (test code = NT%) 73.3 % 39.0-69.0 H IMMATURE GRANULOCYTE % (test code = IG%) 0.5 % 0.0-5.0 N LYMPHOCYTE % (test code = LY%) 9.7 % 25.0-55.0 L MONOCYTE % (test code = MO%) 12.8 % 0.0-10.0 H EOSINOPHIL % (test code = EO%) 3.2 % 0.0-5.0 N BASOPHIL % (test code = BA%) 0.5 % 0.0-1.0 N NUCLEATED RBC % (test code = NRBC%) 0.0 % 0-0 N NEUTROPHIL # (test code = NT#) 4.63 K/mm3 1.8-7.7 N IMMATURE GRANULOCYTE # (test code = IG#) 0.03 x10 3/uL 0-0.03 N LYMPHOCYTE # (test code = LY#) 0.61 K/mm3 1.0-5.0 L MONOCYTE # (test code = MO#) 0.81 K/mm3 0-0.8 H EOSINOPHIL # (test code = EO#) 0.20 K/mm3 0.0-0.5 N BASOPHIL # (test code = BA#) 0.03 K/mm3 0.0-0.2 N NUCLEATED RBC # (test code = NRBC#) 0.00 K/mm3 0.0-0.1 N BREAST ULTRASOUND [id number] 14:52:05- BREAST ULTRASOUND BILATERALULTRASOUND OF BOTH BREASTS AND RIGHT AXILLA: 04/12/2019CLINICAL: Followup to previous exam. Comparison is made to exams dated 03/16/2018 ultrasound, 09/01/2017 ultrasound, 03/04/2017 ultrasound, 05/24/2016 ultrasound, 10/20/2015 ultrasound, and 08/01/2015 ultrasound - [facility] R eal-time ultrasound was performed bilaterally. Both breasts have been surgicall y removed. Bilateral implants are intact. No cystic or solid mass, architectura l distortion, or abnormal acoustic shadowing detected. No abnormalities were se en sonographically in the right axilla. 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 A follow-up ultrasound in 6 months is recommended to demonstrate stability. Ninfa Richardson M.D. dm/:04/12/2019 14: 52:05 Clin Nurse: Elayne Byers , [facility] HOSPITALUltraso und BI-RADS: 1 NegativeHGB [id number] 15:09:00* Test Item Value Reference Range Interpretation Comments HEMOGLOBIN (test code = HGB) 9.2 gram/dL 11.5-15.5 L HEMATOCRIT (test code = HCT) 30.8 % 36.0-46.0 L - CT CHEST W/[id number] 15:50:00 Name: SUZETTE MARTINEZ [facility] : 1945 Age/S: 73 / F [address] [facility] Unit #: [id number] Loc: [place] [address] Phys: Alejandra Lehman MD Acct: [id number] Dis Date: Status: REG CLI PHONE #: [phone] Exam Date: 02/15/2019 1309 FAX #: [phone] Reason: MALIGNANT NEOPLASM EXAMS: CPT CODE: [id number] CT CHEST W/CONTRAST 82460 REASON FOR EXAM: MALIGNANT NEOPLASM EXAM ORDER DATE: 02/15/2019 12:46 PM Ordering M.D.: Alejandra Lehman MD PROCEDURE: - CT CHEST W/CONTRAST Comparison:CT chest October 15, [address] images of the chest were obtained with IV contrast. Reconstructed sagittal and coronal images of the chest were provided for interpretation. Dose reduction techniques were applied. FINDINGS: Visualized neck: Normal Airways, Lungs and Pleura: There is a 6 mm nodule abutting the right major fissure (3/71) that is unchanged from the previous study. There is also a 1 cm nodule in the posterior basal segment of the right lower lobe (3/75) that is unchanged from the prior exam. Heart, great vessels, pulmonary vessels, mediastinum: Atherosclerotic plaques are scattered throughout the thoracic aorta. Mild atherosclerotic disease is present in the left anterior descending and left circumflex coronary arteries. Pulmonary trunk is normal in caliber. Right IJ Port-A-Cath is present with the catheter tip terminating in the distal SVC Lymph nodes: No internal mammary, hilar, or mediastinal adenopathy. Lymph node conglomerate in the left axilla measuring up to 3.5 x 1.8 cm in size is unchanged from the previous exam Musculoskeletal/chest wall: There are degenerative changes scattered throughout the thoracic spine. Findings of rotator cuff repair in the left shoulder. No aggressive appearing bony lesions. Bilateral silicone comparison findings are unchanged. Visualized upper abdomen: Normal IMPRESSION: PAGE 1 Signed Report (CONTINUED) Name: SUZETTE MARTINEZ [facility] : 1945 Age/S: 73 / F [address] [facility] Unit #: [id number] Loc: [place] [address] Phys: Alejandra Vega MD Acct: [id number] Dis Date: Status: REG CLI P SANTY #: [phone] Exam Date: 02/15/2019 1309 FAX #: [phone] Reason: MALIGNANT NEOPLASM EX AMS: CPT CODE: [id number] CT C HEST W/CONTRAST 22335 <Continued> Left axillary lymph node conglomerate and right pulmonary nodules are unchanged from the previous exam. No new adenopathy or new pulmonary nodules are appreciated. No bony abnormalities are seen. Location: [facility] Electronically Signed by Anson Sol MD on at 1550 Reported and signed by: Anson Sol MD CC: Daniela Geiger; Alejandra Lehman M.D. Technologist:Madan Rich(R),(MR),(CT) CTDI: DLP: Trnscb Date/Time: 02/15/2019 (6890) [email or web address] Orig Print D/T: S: 02/15/2019 (9249) PAGE 2 Signed Report [id number] 17:56:00 RUN DATE: 02/01/19 [facility] PAGE 1 RUN TIME: 1756 Specimen Inqui ry RUN USER: INTERFACE PATIENT: SUZETTE MARTINEZ ACCT #: [id number] LOC: [facility] U #: [id number] AGE/SX: 73/F ROOM: RE01/27/19REG DR: Miranda Girard MD : 43 BED: DIS: STATUS: [facility] TLOC: SPEC #: [id number] RECD: 01/27/19 STATUS: JHON LIANG #: [id number] HA: 01/27/[address] [facility] [address]: Miranda Girard MD ENTERED: 01/27/19 SP TYPE: BREAST OTHR DR: Daniela Turcios MD ORDERED: GROSS [place]: [place] [address] [place] [address] Miranda Girard MD [address] [place] [address] [address] [place] [address] [email or web address] PROCEDURES: GROSS (02/01/19) TISSUES: 1. RIGHT BREAS T, NOS 2. 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 It consists of two skin ellipse measuring 3.6 x 1.2 and 7.5 x 3.0, excised to a depth of 2.2 and 1.7 cm, respectively. Sectioning reveals mendes-yellow soft and lobulated cut surface. No mass is identified. The overlying skin is unremar kable. [employer] In[employer] Specialist section is submitted as (1A-1B). The second speci men is received in formalin, labeled with the patient's name, and identified a s "left breast". It consists of a skin ellipse measuring 15.5 x 3.5 cm, excis ed to a depth of 2.6 cm. The overlying skin is unremarkable. Serial sectionin g reveals mendes-yellow soft and lobulated cut surface. No mass is identified. Drug Discovery Informatics Specialist section is submitted as (2A-2B). GROSS PERFORMED AT [facility] [address] [place] [address] [phone])[phone] MICROSCOPIC All of the sta ins, including any controls performed, stain appropriately. MICROSCOPIC PE RFORMED AT [facility] [address] [place] [address] (p)[phone] PERFORMING SITE Diagno sis performed at: [facility] iv[facility] Consultantcornelius, ROBERTH [address] [place] [address] Signed SIGNATURE ON FILE Javier Manrique MD 02/01/19 1756 END OF REPORT COMPREHENSIVE METABOLIC [id number] 10:53:00* Test Item Value Reference Range Interpretation Comments SODIUM (test code = NA) 136 mmol/L 136-145 N POTASSIUM (test code = K) 3.9 mmol/L 3.5-5.1 N CHLORIDE (test code = CL) 105.0 mmol/L 98-107 N CARBON DIOXIDE (test code = CO2) 26.0 mmol/L 21-32 N ANION GAP (test code = GAP) 8.9 10-20 L GLUCOSE (test code = GLU) 108 mg/dL 74-106 H BLOOD UREA NITROGEN (test code = BUN) 8 mg/dL 7-18 N GLOMERULAR FILTRATION RATE (test code = GFR) 54 mL/min >=60 Estimated GFR by using Modified MDRD formula.Chronic kidney disease is defined as either kidney damageor GFR <60 mL/min/1.73 m2 for >3 months. CREATININE (test code = CREAT) 1.00 mg/dL 0.55-1.02 N Note change in reference range due to change in reagent. BUN/CREATININE RATIO (test code = BUN/CREA) 7.8 10-20 L TOTAL PROTEIN (test code = PROT) 8.5 gram/dL 6.4-8.2 H ALBUMIN (test code = ALB) 4.1 g/dL 3.4-5.0 N GLOBULIN (test code = GLOB) 4.4 gram/dL 2.7-4.2 H ALBUMIN/GLOBULIN RATIO (test code = A/G) 0.9 0.75-1.50 N CALCIUM (test code = CA) 9.3 mg/dL 8.5-10.1 N BILIRUBIN TOTAL (test code = BILT) 0.70 mg/dL 0.0-1.0 N SGOT/AST (test code = AST) 20 IUnit/L 15-37 N SGPT/ALT (test code = ALT) 22 IUnit/L 12-78 N ALKALINE PHOSPHATASE TOTAL (test code = ALKP) 106 IUnit/L 45-117 N Note change in reference range due to change in reagent. COMPREHENSIVE METABOLIC [id number] 10:26:00* Test Item Value Reference Range Interpretation Comments SODIUM (test code = NA) 136 mmol/L 136-145 N POTASSIUM (test code = K) 3.9 mmol/L 3.5-5.1 N CHLORIDE (test code = CL) 105.0 mmol/L 98-107 N CARBON DIOXIDE (test code = CO2) mmol/L 21-32 ANION GAP (test code = GAP) 10-20 GLUCOSE (test code = GLU) mg/dL 74-106 BLOOD UREA NITROGEN (test code = BUN) mg/dL 7-18 GLOMERULAR FILTRATION RATE (test code = GFR) mL/min >=60 CREATININE (test code = CREAT) mg/dL 0.55-1.02 BUN/CREATININE RATIO (test code = BUN/CREA) 10-20 TOTAL PROTEIN (test code = PROT) gram/dL 6.4-8.2 ALBUMIN (test code = ALB) g/dL 3.4-5.0 GLOBULIN (test code = GLOB) gram/dL 2.7-4.2 ALBUMIN/GLOBULIN RATIO (test code = A/G) 0.75-1.50 CALCIUM (test code = CA) mg/dL 8.5-10.1 BILIRUBIN TOTAL (test code = BILT) mg/dL 0.0-1.0 SGOT/AST (test code = AST) IUnit/L 15-37 SGPT/ALT (test code = ALT) IUnit/L 12-78 ALKALINE PHOSPHATASE TOTAL (test code = ALKP) IUnit/L 45-117 CBC W/AUTO [id number] 10:17:00* Test Item Value Reference Range Interpretation Comments WHITE BLOOD CELL (test code = WBC) 6.4 K/mm3 4.5-12.5 N RED BLOOD CELL (test code = RBC) 3.24 mill/mm3 3.7-5.2 L HEMOGLOBIN (test code = HGB) 7.6 gram/dL 11.5-15.5 L HEMATOCRIT (test code = HCT) 26.3 % 36.0-46.0 L MEAN CELL VOLUME (test code = MCV) 81.2 fL 80-98 N MEAN CELL HGB (test code = MCH) 23.5 picogram 27.0-33.0 L MEAN CELL HGB CONCETRATION (test code = MCHC) 28.9 gram/dL 33.0-36. 0 L RED CELL DISTRIBUTION WIDTH (test code = RDW) 29.1 % 11.6-16. 2 H RED CELL DISTRIBUTION WIDTH SD (test code = RDW-SD) 81.1 fL 37 .0-51.0 H PLATELET COUNT (test code = PLT) 201 K/mm3 150-450 N MEAN PLATELET VOLUME (test code = MPV) 9.6 fL 6.7-11.0 N NEUTROPHIL % (test code = NT%) 74.2 % 39.0-69.0 H IMMATURE GRANULOCYTE % (test code = IG%) 0.3 % 0.0-5.0 N LYMPHOCYTE % (test code = LY%) 12.7 % 25.0-55.0 L MONOCYTE % (test code = MO%) 8.5 % 0.0-10.0 N EOSINOPHIL % (test code = EO%) 3.4 % 0.0-5.0 N BASOPHIL % (test code = BA%) 0.9 % 0.0-1.0 N NUCLEATED RBC % (test code = NRBC%) 0.0 % 0-0 N NEUTROPHIL # (test code = NT#) 4.77 K/mm3 1.8-7.7 N IMMATURE GRANULOCYTE # (test code = IG#) 0.02 x10 3/uL 0-0.03 N LYMPHOCYTE # (test code = LY#) 0.82 K/mm3 1.0-5.0 L MONOCYTE # (test code = MO#) 0.55 K/mm3 0-0.8 N EOSINOPHIL # (test code = EO#) 0.22 K/mm3 0.0-0.5 N BASOPHIL # (test code = BA#) 0.06 K/mm3 0.0-0.2 N NUCLEATED RBC # (test code = NRBC#) 0.00 K/mm3 0.0-0.1 N MANUAL DIFF REQUIRED (test code = MDIFF) NO, ONLY SCAN NEEDED DIFFERENTIAL [id number] 10:17:00* Test Item Value Reference Range Interpretation Comments STAIN ACCEPTABILITY (test code = STN ACCEPTABLE) STAIN ACCEPTABLE POLYCHROMASIA (test code = POLC) 1+ HYPOCHROMIA (test code = HYPO) 1+ ANISOCYTOSIS (test code = ANISO) 1+ MICROCYTOSIS (test code = MICR) 1+ PLATELET ESTIMATE (test code = PLTEST) ADEQUATE PLATELET MORPHOLOGY (test code = PLTMORPH) SIZE VARIABLE CBC W/AUTO [id number] 10:06:00* Test Item Value Reference Range Interpretation Comments WHITE BLOOD CELL (test code = WBC) 6.4 K/mm3 4.5-12.5 N RED BLOOD CELL (test code = RBC) 3.24 mill/mm3 3.7-5.2 L HEMOGLOBIN (test code = HGB) 7.6 gram/dL 11.5-15.5 L HEMATOCRIT (test code = HCT) 26.3 % 36.0-46.0 L MEAN CELL VOLUME (test code = MCV) 81.2 fL 80-98 N MEAN CELL HGB (test code = MCH) 23.5 picogram 27.0-33.0 L MEAN CELL HGB CONCETRATION (test code = MCHC) 28.9 gram/dL 33.0-36. 0 L RED CELL DISTRIBUTION WIDTH (test code = RDW) 29.1 % 11.6-16. 2 H RED CELL DISTRIBUTION WIDTH SD (test code = RDW-SD) 81.1 fL 37 .0-51.0 H PLATELET COUNT (test code = PLT) 201 K/mm3 150-450 N MEAN PLATELET VOLUME (test code = MPV) 9.6 fL 6.7-11.0 N NEUTROPHIL % (test code = NT%) 74.2 % 39.0-69.0 H IMMATURE GRANULOCYTE % (test code = IG%) 0.3 % 0.0-5.0 N LYMPHOCYTE % (test code = LY%) 12.7 % 25.0-55.0 L MONOCYTE % (test code = MO%) 8.5 % 0.0-10.0 N EOSINOPHIL % (test code = EO%) 3.4 % 0.0-5.0 N BASOPHIL % (test code = BA%) 0.9 % 0.0-1.0 N NUCLEATED RBC % (test code = NRBC%) 0.0 % 0-0 N NEUTROPHIL # (test code = NT#) 4.77 K/mm3 1.8-7.7 N IMMATURE GRANULOCYTE # (test code = IG#) 0.02 x10 3/uL 0-0.03 N LYMPHOCYTE # (test code = LY#) 0.82 K/mm3 1.0-5.0 L MONOCYTE # (test code = MO#) 0.55 K/mm3 0-0.8 N EOSINOPHIL # (test code = EO#) 0.22 K/mm3 0.0-0.5 N BASOPHIL # (test code = BA#) 0.06 K/mm3 0.0-0.2 N NUCLEATED RBC # (test code = NRBC#) 0.00 K/mm3 0.0-0.1 N MANUAL DIFF REQUIRED (test code = MDIFF) NO, ONLY SCAN NEEDED DIFFERENTIAL [id number] 10:06:00* Test Item Value Reference Range Interpretation Comments STAIN ACCEPTABILITY (test code = STN ACCEPTABLE) CABOT RINGS (test code = CAB) MORPHOLOGY COMMENT (test code = MOC) PLATELET ESTIMATE (test code = PLTEST) PLATELET MORPHOLOGY (test code = PLTMORPH) CBC W/AUTO [id number] 10:06:00* Test Item Value Reference Range Interpretation Comments WHITE BLOOD CELL (test code = WBC) 6.4 K/mm3 4.5-12.5 N RED BLOOD CELL (test code = RBC) 3.24 mill/mm3 3.7-5.2 L HEMOGLOBIN (test code = HGB) 7.6 gram/dL 11.5-15.5 L HEMATOCRIT (test code = HCT) 26.3 % 36.0-46.0 L MEAN CELL VOLUME (test code = MCV) 81.2 fL 80-98 N MEAN CELL HGB (test code = MCH) 23.5 picogram 27.0-33.0 L MEAN CELL HGB CONCETRATION (test code = MCHC) 28.9 gram/dL 33.0-36. 0 L RED CELL DISTRIBUTION WIDTH (test code = RDW) 29.1 % 11.6-16. 2 H RED CELL DISTRIBUTION WIDTH SD (test code = RDW-SD) 81.1 fL 37 .0-51.0 H PLATELET COUNT (test code = PLT) 201 K/mm3 150-450 N MEAN PLATELET VOLUME (test code = MPV) 9.6 fL 6.7-11.0 N NEUTROPHIL % (test code = NT%) 74.2 % 39.0-69.0 H IMMATURE GRANULOCYTE % (test code = IG%) 0.3 % 0.0-5.0 N LYMPHOCYTE % (test code = LY%) 12.7 % 25.0-55.0 L MONOCYTE % (test code = MO%) 8.5 % 0.0-10.0 N EOSINOPHIL % (test code = EO%) 3.4 % 0.0-5.0 N BASOPHIL % (test code = BA%) 0.9 % 0.0-1.0 N NUCLEATED RBC % (test code = NRBC%) 0.0 % 0-0 N NEUTROPHIL # (test code = NT#) 4.77 K/mm3 1.8-7.7 N IMMATURE GRANULOCYTE # (test code = IG#) 0.02 x10 3/uL 0-0.03 N LYMPHOCYTE # (test code = LY#) 0.82 K/mm3 1.0-5.0 L MONOCYTE # (test code = MO#) 0.55 K/mm3 0-0.8 N EOSINOPHIL # (test code = EO#) 0.22 K/mm3 0.0-0.5 N BASOPHIL # (test code = BA#) 0.06 K/mm3 0.0-0.2 N NUCLEATED RBC # (test code = NRBC#) 0.00 K/mm3 0.0-0.1 N MANUAL DIFF REQUIRED (test code = MDIFF) NO, ONLY SCAN NEEDED DIFFERENTIAL [id number] 10:06:00* Test Item Value Reference Range Interpretation Comments STAIN ACCEPTABILITY (test code = STN ACCEPTABLE) MORPHOLOGY COMMENT (test code = MOC) PLATELET ESTIMATE (test code = PLTEST) PLATELET MORPHOLOGY (test code = PLTMORPH) CBC W/AUTO [id number] 10:05:00* Test Item Value Reference Range Interpretation Comments WHITE BLOOD CELL (test code = WBC) 6.4 K/mm3 4.5-12.5 N RED BLOOD CELL (test code = RBC) 3.24 mill/mm3 3.7-5.2 L HEMOGLOBIN (test code = HGB) 7.6 gram/dL 11.5-15.5 L HEMATOCRIT (test code = HCT) 26.3 % 36.0-46.0 L MEAN CELL VOLUME (test code = MCV) 81.2 fL 80-98 N MEAN CELL HGB (test code = MCH) 23.5 picogram 27.0-33.0 L MEAN CELL HGB CONCETRATION (test code = MCHC) 28.9 gram/dL 33.0-36. 0 L RED CELL DISTRIBUTION WIDTH (test code = RDW) 29.1 % 11.6-16. 2 H RED CELL DISTRIBUTION WIDTH SD (test code = RDW-SD) 81.1 fL 37 .0-51.0 H PLATELET COUNT (test code = PLT) 201 K/mm3 150-450 N MEAN PLATELET VOLUME (test code = MPV) 9.6 fL 6.7-11.0 N NEUTROPHIL % (test code = NT%) 74.2 % 39.0-69.0 H IMMATURE GRANULOCYTE % (test code = IG%) 0.3 % 0.0-5.0 N LYMPHOCYTE % (test code = LY%) 12.7 % 25.0-55.0 L MONOCYTE % (test code = MO%) 8.5 % 0.0-10.0 N EOSINOPHIL % (test code = EO%) 3.4 % 0.0-5.0 N BASOPHIL % (test code = BA%) 0.9 % 0.0-1.0 N NUCLEATED RBC % (test code = NRBC%) 0.0 % 0-0 N NEUTROPHIL # (test code = NT#) 4.77 K/mm3 1.8-7.7 N IMMATURE GRANULOCYTE # (test code = IG#) 0.02 x10 3/uL 0-0.03 N LYMPHOCYTE # (test code = LY#) 0.82 K/mm3 1.0-5.0 L MONOCYTE # (test code = MO#) 0.55 K/mm3 0-0.8 N EOSINOPHIL # (test code = EO#) 0.22 K/mm3 0.0-0.5 N BASOPHIL # (test code = BA#) 0.06 K/mm3 0.0-0.2 N NUCLEATED RBC # (test code = NRBC#) 0.00 K/mm3 0.0-0.1 N MANUAL DIFF REQUIRED (test code = MDIFF) NO, ONLY SCAN NEEDED DIFFERENTIAL [id number] 10:05:00* Test Item Value Reference Range Interpretation Comments STAIN ACCEPTABILITY (test code = STN ACCEPTABLE) CABOT RINGS (test code = CAB) MORPHOLOGY COMMENT (test code = MOC) PLATELET ESTIMATE (test code = PLTEST) PLATELET MORPHOLOGY (test code = PLTMORPH) CBC W/AUTO [id number] 10:05:00* Test Item Value Reference Range Interpretation Comments WHITE BLOOD CELL (test code = WBC) 6.4 K/mm3 4.5-12.5 N RED BLOOD CELL (test code = RBC) 3.24 mill/mm3 3.7-5.2 L HEMOGLOBIN (test code = HGB) 7.6 gram/dL 11.5-15.5 L HEMATOCRIT (test code = HCT) 26.3 % 36.0-46.0 L MEAN CELL VOLUME (test code = MCV) 81.2 fL 80-98 N MEAN CELL HGB (test code = MCH) 23.5 picogram 27.0-33.0 L MEAN CELL HGB CONCETRATION (test code = MCHC) 28.9 gram/dL 33.0-36. 0 L RED CELL DISTRIBUTION WIDTH (test code = RDW) 29.1 % 11.6-16. 2 H RED CELL DISTRIBUTION WIDTH SD (test code = RDW-SD) 81.1 fL 37 .0-51.0 H PLATELET COUNT (test code = PLT) 201 K/mm3 150-450 N MEAN PLATELET VOLUME (test code = MPV) 9.6 fL 6.7-11.0 N NEUTROPHIL % (test code = NT%) 74.2 % 39.0-69.0 H IMMATURE GRANULOCYTE % (test code = IG%) 0.3 % 0.0-5.0 N LYMPHOCYTE % (test code = LY%) 12.7 % 25.0-55.0 L MONOCYTE % (test code = MO%) 8.5 % 0.0-10.0 N EOSINOPHIL % (test code = EO%) 3.4 % 0.0-5.0 N BASOPHIL % (test code = BA%) 0.9 % 0.0-1.0 N NUCLEATED RBC % (test code = NRBC%) 0.0 % 0-0 N NEUTROPHIL # (test code = NT#) 4.77 K/mm3 1.8-7.7 N IMMATURE GRANULOCYTE # (test code = IG#) 0.02 x10 3/uL 0-0.03 N LYMPHOCYTE # (test code = LY#) 0.82 K/mm3 1.0-5.0 L MONOCYTE # (test code = MO#) 0.55 K/mm3 0-0.8 N EOSINOPHIL # (test code = EO#) 0.22 K/mm3 0.0-0.5 N BASOPHIL # (test code = BA#) 0.06 K/mm3 0.0-0.2 N NUCLEATED RBC # (test code = NRBC#) 0.00 K/mm3 0.0-0.1 N MANUAL DIFF REQUIRED (test code = MDIFF) NO, ONLY SCAN NEEDED DIFFERENTIAL [id number] 10:05:00* Test Item Value Reference Range Interpretation Comments STAIN ACCEPTABILITY (test code = STN ACCEPTABLE) CABOT RINGS (test code = CAB) MORPHOLOGY COMMENT (test code = MOC) PLATELET ESTIMATE (test code = PLTEST) PLATELET MORPHOLOGY (test code = PLTMORPH) [id number] 16:46:00 RUN DATE: 11/03/18 [place] [facility] PAGE 1 RUN TIME: 1646 Specimen Inqui ry RUN USER: INTERFACE PATIENT: SUZETTE MARTINEZ ACCT #: [id number] LOC: [facility] U #: [id number] AGE/SX: 73/F ROOM: RE10/30/18REG DR: Miranda Girard MD : 43 BED: DIS: STATUS: [facility] TLOC: SPEC #: [id number] RECD: 11/02/18 STATUS: JHON GARTH #: [id number] HA: 10/30/[address] [facility] [address]: Miranda Girard MD ENTERED: 11/02/18 SP TYPE: BREAST OTHR DR: Daniela Turcios MD ORDERED: CAR[place]: [place] [id number] [place] [address] Miranda Girard MD [address] [place] [address] [address] [place] [address] [email or web address] PROCEDURES: CARINA (11/03/18-1519) TISSUES: 1. LEFT BREAST , NOS - TISSUE 2. RIGHT BREAST, NOS - TISSUE CLINICAL HISTORY COLLECTION DATE: 10/30/18 RECURRENT BREAST CANCER FINAL DIAGNOSIS Left breast tissue, revision of reconstructed breast: SKIN NEGAT VAISHALI FOR MALIGNANCY Right breast tissue, revision of reconstructed breast: SKIN NEGATIVE FOR MALIGNANCY DMW/sm D (8) [id number] CONTINUED ON NEXT PAGE RUN DATE: 11/03/18 [place] [facility] PAGE 2 RUN TIME: 1646 Specimen Inquiry RUN USER: INTERFACE - SPEC #: [id number] PATIENT: SUZETTE MARTINEZ #[id number] (Continued) MACROSCOPIC The first specimen is received in formalin, labeled with the patient's name, and identified as " left breast tissue". The specimen consists of multiple fragments of skin brad uring 7 x 5.3 x 0.8 cm in aggregate. No focal lesions are seen. Some of the l arger fragments are transected and the specimen is submitted in its entirety f or microscopic evaluation in cassettes (1A-1L). The second specimen is received in formalin, labeled with the patient's name, and identified as "r ight breast tissue". It consists of multiple fragments of skin measuring 5 x 4 x 1 cm in aggregate. No focal lesions are seen. The specimen is submitted in its entirety for microscopic evaluation in cassettes (2A-2F). GIULIANA SS PERFORMED AT [facility] [employer]ANCHISE SALES REPRESENTATIVE S [address] [place] [address] [phone] MICROS COPIC All of the stains, including any controls performed, stain appropriat lucretia. MICROSCOPIC PERFORMED AT [facility] [address] [place] [address] [phone] PERFORMING SITE Diagnosis performed at: [facility] [address] [place] [id number] Signed SIGNATURE ON FILE Gavi Booker MD 11/03/18 1646 END OF REPORT CBC W/AUTO [id number] 17:01:00* Test Item Value Reference Range Interpretation Comments WHITE BLOOD CELL (test code = WBC) 5.8 K/mm3 4.5-12.5 N RED BLOOD CELL (test code = RBC) 3.46 mill/mm3 3.7-5.2 L HEMOGLOBIN (test code = HGB) 8.0 gram/dL 11.5-15.5 L HEMATOCRIT (test code = HCT) 28.0 % 36.0-46.0 L MEAN CELL VOLUME (test code = MCV) 80.9 fL 80-98 N MEAN CELL HGB (test code = MCH) 23.1 picogram 27.0-33.0 L MEAN CELL HGB CONCETRATION (test code = MCHC) 28.6 gram/dL 33.0-36. 0 L RED CELL DISTRIBUTION WIDTH (test code = RDW) 24.9 % 11.6-16. 2 H RED CELL DISTRIBUTION WIDTH SD (test code = RDW-SD) 72.5 fL 37 .0-51.0 H PLATELET COUNT (test code = PLT) 213 K/mm3 150-450 N MEAN PLATELET VOLUME (test code = MPV) 9.6 fL 6.7-11.0 N NEUTROPHIL % (test code = NT%) 67.1 % 39.0-69.0 N IMMATURE GRANULOCYTE % (test code = IG%) 0.5 % 0.0-5.0 N LYMPHOCYTE % (test code = LY%) 18.4 % 25.0-55.0 L MONOCYTE % (test code = MO%) 10.7 % 0.0-10.0 H EOSINOPHIL % (test code = EO%) 2.6 % 0.0-5.0 N BASOPHIL % (test code = BA%) 0.7 % 0.0-1.0 N NUCLEATED RBC % (test code = NRBC%) 0.0 % 0-0 N NEUTROPHIL # (test code = NT#) 3.90 K/mm3 1.8-7.7 N IMMATURE GRANULOCYTE # (test code = IG#) 0.03 x10 3/uL 0-0.03 N LYMPHOCYTE # (test code = LY#) 1.07 K/mm3 1.0-5.0 N MONOCYTE # (test code = MO#) 0.62 K/mm3 0-0.8 N EOSINOPHIL # (test code = EO#) 0.15 K/mm3 0.0-0.5 N BASOPHIL # (test code = BA#) 0.04 K/mm3 0.0-0.2 N NUCLEATED RBC # (test code = NRBC#) 0.00 K/mm3 0.0-0.1 N MANUAL DIFF REQUIRED (test code = MDIFF) NO, ONLY SCAN NEEDED DIFFERENTIAL [id number] 17:01:00* Test Item Value Reference Range Interpretation Comments STAIN ACCEPTABILITY (test code = STN ACCEPTABLE) STAIN ACCEPTABLE POLYCHROMASIA (test code = POLC) 1+ HYPOCHROMIA (test code = HYPO) 2+ POIKILOCYTOSIS (test code = POIK) 1+ ANISOCYTOSIS (test code = ANISO) 1+ MICROCYTOSIS (test code = MICR) 1+ OVALOCYTES (test code = OVAL) 1+ PLATELET ESTIMATE (test code = PLTEST) ADEQUATE PLATELET MORPHOLOGY (test code = PLTMORPH) SIZE VARIABLE COMPREHENSIVE METABOLIC [id number] 16:44:00* Test Item Value Reference Range Interpretation Comments SODIUM (test code = NA) 138 mmol/L 136-145 N POTASSIUM (test code = K) 3.7 mmol/L 3.5-5.1 N CHLORIDE (test code = CL) 105.0 mmol/L 98-107 N CARBON DIOXIDE (test code = CO2) 27.0 mmol/L 21-32 N ANION GAP (test code = GAP) 9.7 10-20 L GLUCOSE (test code = GLU) 111 mg/dL 74-106 H BLOOD UREA NITROGEN (test code = BUN) 12 mg/dL 7-18 N GLOMERULAR FILTRATION RATE (test code = GFR) 44 mL/min >=60 Estimated GFR by using Modified MDRD formula.Chronic kidney disease is defined as either kidney damageor GFR <60 mL/min/1.73 m2 for >3 months. CREATININE (test code = CREAT) 1.20 mg/dL 0.55-1.02 H Note change in reference range due to change in reagent. BUN/CREATININE RATIO (test code = BUN/CREA) 10.0 10-20 N TOTAL PROTEIN (test code = PROT) 8.6 gram/dL 6.4-8.2 H ALBUMIN (test code = ALB) 4.0 g/dL 3.4-5.0 N GLOBULIN (test code = GLOB) 4.6 gram/dL 2.7-4.2 H ALBUMIN/GLOBULIN RATIO (test code = A/G) 0.9 0.75-1.50 N CALCIUM (test code = CA) 9.3 mg/dL 8.5-10.1 N BILIRUBIN TOTAL (test code = BILT) 0.60 mg/dL 0.0-1.0 N SGOT/AST (test code = AST) 19 IUnit/L 15-37 N SGPT/ALT (test code = ALT) 21 IUnit/L 12-78 N ALKALINE PHOSPHATASE TOTAL (test code = ALKP) 111 IUnit/L 45-117 N Note change in reference range due to change in reagent. COMPREHENSIVE METABOLIC [id number] 16:38:00* Test Item Value Reference Range Interpretation Comments SODIUM (test code = NA) 138 mmol/L 136-145 N POTASSIUM (test code = K) 3.7 mmol/L 3.5-5.1 N CHLORIDE (test code = CL) 105.0 mmol/L 98-107 N CARBON DIOXIDE (test code = CO2) mmol/L 21-32 ANION GAP (test code = GAP) 10-20 GLUCOSE (test code = GLU) mg/dL 74-106 BLOOD UREA NITROGEN (test code = BUN) mg/dL 7-18 GLOMERULAR FILTRATION RATE (test code = GFR) mL/min >=60 CREATININE (test code = CREAT) mg/dL 0.55-1.02 BUN/CREATININE RATIO (test code = BUN/CREA) 10-20 TOTAL PROTEIN (test code = PROT) gram/dL 6.4-8.2 ALBUMIN (test code = ALB) g/dL 3.4-5.0 GLOBULIN (test code = GLOB) gram/dL 2.7-4.2 ALBUMIN/GLOBULIN RATIO (test code = A/G) 0.75-1.50 CALCIUM (test code = CA) mg/dL 8.5-10.1 BILIRUBIN TOTAL (test code = BILT) mg/dL 0.0-1.0 SGOT/AST (test code = AST) IUnit/L 15-37 SGPT/ALT (test code = ALT) IUnit/L 12-78 ALKALINE PHOSPHATASE TOTAL (test code = ALKP) IUnit/L 45-117 CBC W/AUTO [id number] 16:14:00* Test Item Value Reference Range Interpretation Comments WHITE BLOOD CELL (test code = WBC) 5.8 K/mm3 4.5-12.5 N RED BLOOD CELL (test code = RBC) 3.46 mill/mm3 3.7-5.2 L HEMOGLOBIN (test code = HGB) 8.0 gram/dL 11.5-15.5 L HEMATOCRIT (test code = HCT) 28.0 % 36.0-46.0 L MEAN CELL VOLUME (test code = MCV) 80.9 fL 80-98 N MEAN CELL HGB (test code = MCH) 23.1 picogram 27.0-33.0 L MEAN CELL HGB CONCETRATION (test code = MCHC) 28.6 gram/dL 33.0-36. 0 L RED CELL DISTRIBUTION WIDTH (test code = RDW) 24.9 % 11.6-16. 2 H RED CELL DISTRIBUTION WIDTH SD (test code = RDW-SD) 72.5 fL 37 .0-51.0 H PLATELET COUNT (test code = PLT) 213 K/mm3 150-450 N MEAN PLATELET VOLUME (test code = MPV) 9.6 fL 6.7-11.0 N NEUTROPHIL % (test code = NT%) 67.1 % 39.0-69.0 N IMMATURE GRANULOCYTE % (test code = IG%) 0.5 % 0.0-5.0 N LYMPHOCYTE % (test code = LY%) 18.4 % 25.0-55.0 L MONOCYTE % (test code = MO%) 10.7 % 0.0-10.0 H EOSINOPHIL % (test code = EO%) 2.6 % 0.0-5.0 N BASOPHIL % (test code = BA%) 0.7 % 0.0-1.0 N NUCLEATED RBC % (test code = NRBC%) 0.0 % 0-0 N NEUTROPHIL # (test code = NT#) 3.90 K/mm3 1.8-7.7 N IMMATURE GRANULOCYTE # (test code = IG#) 0.03 x10 3/uL 0-0.03 N LYMPHOCYTE # (test code = LY#) 1.07 K/mm3 1.0-5.0 N MONOCYTE # (test code = MO#) 0.62 K/mm3 0-0.8 N EOSINOPHIL # (test code = EO#) 0.15 K/mm3 0.0-0.5 N BASOPHIL # (test code = BA#) 0.04 K/mm3 0.0-0.2 N NUCLEATED RBC # (test code = NRBC#) 0.00 K/mm3 0.0-0.1 N MANUAL DIFF REQUIRED (test code = MDIFF) NO, ONLY SCAN NEEDED DIFFERENTIAL [id number] 16:14:00* Test Item Value Reference Range Interpretation Comments STAIN ACCEPTABILITY (test code = STN ACCEPTABLE) CABOT RINGS (test code = CAB) MORPHOLOGY COMMENT (test code = MOC) PLATELET ESTIMATE (test code = PLTEST) PLATELET MORPHOLOGY (test code = PLTMORPH) CBC W/AUTO [id number] 16:14:00* Test Item Value Reference Range Interpretation Comments WHITE BLOOD CELL (test code = WBC) 5.8 K/mm3 4.5-12.5 N RED BLOOD CELL (test code = RBC) 3.46 mill/mm3 3.7-5.2 L HEMOGLOBIN (test code = HGB) 8.0 gram/dL 11.5-15.5 L HEMATOCRIT (test code = HCT) 28.0 % 36.0-46.0 L MEAN CELL VOLUME (test code = MCV) 80.9 fL 80-98 N MEAN CELL HGB (test code = MCH) 23.1 picogram 27.0-33.0 L MEAN CELL HGB CONCETRATION (test code = MCHC) 28.6 gram/dL 33.0-36. 0 L RED CELL DISTRIBUTION WIDTH (test code = RDW) 24.9 % 11.6-16. 2 H RED CELL DISTRIBUTION WIDTH SD (test code = RDW-SD) 72.5 fL 37 .0-51.0 H PLATELET COUNT (test code = PLT) 213 K/mm3 150-450 N MEAN PLATELET VOLUME (test code = MPV) 9.6 fL 6.7-11.0 N NEUTROPHIL % (test code = NT%) 67.1 % 39.0-69.0 N IMMATURE GRANULOCYTE % (test code = IG%) 0.5 % 0.0-5.0 N LYMPHOCYTE % (test code = LY%) 18.4 % 25.0-55.0 L MONOCYTE % (test code = MO%) 10.7 % 0.0-10.0 H EOSINOPHIL % (test code = EO%) 2.6 % 0.0-5.0 N BASOPHIL % (test code = BA%) 0.7 % 0.0-1.0 N NUCLEATED RBC % (test code = NRBC%) 0.0 % 0-0 N NEUTROPHIL # (test code = NT#) 3.90 K/mm3 1.8-7.7 N IMMATURE GRANULOCYTE # (test code = IG#) 0.03 x10 3/uL 0-0.03 N LYMPHOCYTE # (test code = LY#) 1.07 K/mm3 1.0-5.0 N MONOCYTE # (test code = MO#) 0.62 K/mm3 0-0.8 N EOSINOPHIL # (test code = EO#) 0.15 K/mm3 0.0-0.5 N BASOPHIL # (test code = BA#) 0.04 K/mm3 0.0-0.2 N NUCLEATED RBC # (test code = NRBC#) 0.00 K/mm3 0.0-0.1 N MANUAL DIFF REQUIRED (test code = MDIFF) NO, ONLY SCAN NEEDED DIFFERENTIAL [id number] 16:14:00* Test Item Value Reference Range Interpretation Comments STAIN ACCEPTABILITY (test code = STN ACCEPTABLE) MORPHOLOGY COMMENT (test code = MOC) PLATELET ESTIMATE (test code = PLTEST) PLATELET MORPHOLOGY (test code = PLTMORPH) CBC W/AUTO [id number] 16:13:00* Test Item Value Reference Range Interpretation Comments WHITE BLOOD CELL (test code = WBC) 5.8 K/mm3 4.5-12.5 N RED BLOOD CELL (test code = RBC) 3.46 mill/mm3 3.7-5.2 L HEMOGLOBIN (test code = HGB) 8.0 gram/dL 11.5-15.5 L HEMATOCRIT (test code = HCT) 28.0 % 36.0-46.0 L MEAN CELL VOLUME (test code = MCV) 80.9 fL 80-98 N MEAN CELL HGB (test code = MCH) 23.1 picogram 27.0-33.0 L MEAN CELL HGB CONCETRATION (test code = MCHC) 28.6 gram/dL 33.0-36. 0 L RED CELL DISTRIBUTION WIDTH (test code = RDW) 24.9 % 11.6-16. 2 H RED CELL DISTRIBUTION WIDTH SD (test code = RDW-SD) 72.5 fL 37 .0-51.0 H PLATELET COUNT (test code = PLT) 213 K/mm3 150-450 N MEAN PLATELET VOLUME (test code = MPV) 9.6 fL 6.7-11.0 N NEUTROPHIL % (test code = NT%) 67.1 % 39.0-69.0 N IMMATURE GRANULOCYTE % (test code = IG%) 0.5 % 0.0-5.0 N LYMPHOCYTE % (test code = LY%) 18.4 % 25.0-55.0 L MONOCYTE % (test code = MO%) 10.7 % 0.0-10.0 H EOSINOPHIL % (test code = EO%) 2.6 % 0.0-5.0 N BASOPHIL % (test code = BA%) 0.7 % 0.0-1.0 N NUCLEATED RBC % (test code = NRBC%) 0.0 % 0-0 N NEUTROPHIL # (test code = NT#) 3.90 K/mm3 1.8-7.7 N IMMATURE GRANULOCYTE # (test code = IG#) 0.03 x10 3/uL 0-0.03 N LYMPHOCYTE # (test code = LY#) 1.07 K/mm3 1.0-5.0 N MONOCYTE # (test code = MO#) 0.62 K/mm3 0-0.8 N EOSINOPHIL # (test code = EO#) 0.15 K/mm3 0.0-0.5 N BASOPHIL # (test code = BA#) 0.04 K/mm3 0.0-0.2 N NUCLEATED RBC # (test code = NRBC#) 0.00 K/mm3 0.0-0.1 N MANUAL DIFF REQUIRED (test code = MDIFF) NO, ONLY SCAN NEEDED DIFFERENTIAL [id number] 16:13:00* Test Item Value Reference Range Interpretation Comments STAIN ACCEPTABILITY (test code = STN ACCEPTABLE) CABOT RINGS (test code = CAB) MORPHOLOGY COMMENT (test code = MOC) PLATELET ESTIMATE (test code = PLTEST) PLATELET MORPHOLOGY (test code = PLTMORPH) CBC W/AUTO [id number] 16:13:00* Test Item Value Reference Range Interpretation Comments WHITE BLOOD CELL (test code = WBC) 5.8 K/mm3 4.5-12.5 N RED BLOOD CELL (test code = RBC) 3.46 mill/mm3 3.7-5.2 L HEMOGLOBIN (test code = HGB) 8.0 gram/dL 11.5-15.5 L HEMATOCRIT (test code = HCT) 28.0 % 36.0-46.0 L MEAN CELL VOLUME (test code = MCV) 80.9 fL 80-98 N MEAN CELL HGB (test code = MCH) 23.1 picogram 27.0-33.0 L MEAN CELL HGB CONCETRATION (test code = MCHC) 28.6 gram/dL 33.0-36. 0 L RED CELL DISTRIBUTION WIDTH (test code = RDW) 24.9 % 11.6-16. 2 H RED CELL DISTRIBUTION WIDTH SD (test code = RDW-SD) 72.5 fL 37 .0-51.0 H PLATELET COUNT (test code = PLT) 213 K/mm3 150-450 N MEAN PLATELET VOLUME (test code = MPV) 9.6 fL 6.7-11.0 N NEUTROPHIL % (test code = NT%) 67.1 % 39.0-69.0 N IMMATURE GRANULOCYTE % (test code = IG%) 0.5 % 0.0-5.0 N LYMPHOCYTE % (test code = LY%) 18.4 % 25.0-55.0 L MONOCYTE % (test code = MO%) 10.7 % 0.0-10.0 H EOSINOPHIL % (test code = EO%) 2.6 % 0.0-5.0 N BASOPHIL % (test code = BA%) 0.7 % 0.0-1.0 N NUCLEATED RBC % (test code = NRBC%) 0.0 % 0-0 N NEUTROPHIL # (test code = NT#) 3.90 K/mm3 1.8-7.7 N IMMATURE GRANULOCYTE # (test code = IG#) 0.03 x10 3/uL 0-0.03 N LYMPHOCYTE # (test code = LY#) 1.07 K/mm3 1.0-5.0 N MONOCYTE # (test code = MO#) 0.62 K/mm3 0-0.8 N EOSINOPHIL # (test code = EO#) 0.15 K/mm3 0.0-0.5 N BASOPHIL # (test code = BA#) 0.04 K/mm3 0.0-0.2 N NUCLEATED RBC # (test code = NRBC#) 0.00 K/mm3 0.0-0.1 N MANUAL DIFF REQUIRED (test code = MDIFF) NO, ONLY SCAN NEEDED DIFFERENTIAL [id number] 16:13:00* Test Item Value Reference Range Interpretation Comments STAIN ACCEPTABILITY (test code = STN ACCEPTABLE) CABOT RINGS (test code = CAB) MORPHOLOGY COMMENT (test code = MOC) PLATELET ESTIMATE (test code = PLTEST) PLATELET MORPHOLOGY (test code = PLTMORPH) - CT CHEST W/[id number] 12:19:00 Name: SUZETTE MARTINEZ [facility] : 1945 Age/S: 73 / F [address] [facility] Unit #: [id number] Loc: [place], [place] [address] Phys: Alejandra Lehman MD Acct: [id number] Dis Date: Status: REG CLI PHONE #: [phone] Exam Date: 10/15/2018 1044 FAX #: [phone] Reason: SEC AND MALIG EXAMS: CPT CODE: [id number] CT CHEST W/CONTRAST 53748 HISTORY: Staging breast cancer with pulmonary metastases. COMPARISON: 2018 and February 20, 2018. PET CT scan from May 25, 2018. CT chest with contrast: 100 mL of Isovue-370. Automated exposure control. Ascending aortic aneurysm is stable measuring up to 4 cm given differences in measuring technique. No dissection. No aortic aneurysm ascending aorta. Atherosclerotic change. Unremarkable pulmonary arteries not performed as PE protocol exam. Well- opacified SVC and neck vasculature. Thyroid glands are unremarkable. Esophageal wall is not thickened. Pathologic left axillary adenopathy measuring up to 3.3 cm appears unchanged. Uptake was noted on the previous PET scan. Cardiomegaly without pericardial effusion. Visualized upper abdomen demonstrating low-attenuation again noted in the caudate lobe which did not demonstrate any uptake on the previous PET scan and appears unchanged. The subcutaneous tissues and the musculature are normal in appearance. Bilateral breast implants mild intracapsular rupture on the left side is unchanged. No extra capsular rupture. No lytic or blastic lesions are noted within the bony skeleton. DJD. Old posterior lateral lower right rib fracture. The lungs are clear of infiltrates, effusion or congestion. No bronchiectasis, honeycombing or fibrosis or endobronchial lesions. Stable pleural-based right lower lobe lobe lung mass measuring approximately 1 cm demonstrating no change. No uptake noted on the PET scan. Faint noncalcified posterior right paracardi ac right lower lobe 5.3 mm nodule is unchanged. No uptake noted on the PET scan. No new nodules are noted. IMPRESSION: Stable 3.3 cm left axillary lymph node. Uptake was noted on the pre vious PET scan. No new pathologic adenopathy. No new lung mass or nodule s. Stable lung nodules in the right base measuring 1 cm and 5.3 mm. No u ptake was noted on the previous PET scan. No distant metastases visible. PAGE 1 Signed Report (CONTINUE D) Name: SUZETTE MARTINEZ [facility] : 1945 Age/S: 73 / F [address] [facility] Unit #: [id number] Loc: [place] [address] Phys: Leonel Lehman MD Acct: [id number] Dis Date: Status: REG CLI PHONE #: [phone] Exam Date: 10/15/2018 1044 FAX #: [phone] Reason: SEC AND MALIG EXAMS: CPT CODE: [id number] CT CHEST W /CONTRAST 06153 <Continued> at 1219 Reported and signed by: Donnell Velasquez M.D. CC: Daniela Geiger; Alejandra Lehman M.D. Technologist:Malathi Mueller,RT(R),CT CTDI: DLP: Trnscb Kevin e/Time: 10/15/2018 (1219) t.SDR.TH4 PAGE 2 Signed Report CREATININE W ESTIMATED GFR 2018-10-15 10:04:00* Test Item Value Reference Range Interpretation Comments BEDSIDE CREATININE (test code = CREATBED) mg/dL 0.7-1.3 N GLOMERULAR FILTRATION RATE POC (test code = GFRBED) 69 >6 0 H CREATININE W ESTIMATED [id number] 10:04:00* Test Item Value Reference Range Interpretation Comments BEDSIDE CREATININE (test code = CREATBED) 0.81 mg/dL 0.7-1.3 N GLOMERULAR FILTRATION RATE POC (test code = GFRBED) > 60 >6 0 H Previously reported result: 69 Edited by: HERMAN on 10/15/18:588500 1004: GFRBED previously reported as: 69 H BREAST ULTRASOUND [id number] 07:31:49- BREAST ULTRASOUND BILATERALULTRASOUND OF BOTH BREASTS AND RIGHT AXILLA: 09/21/2018CLINICAL: 6 month follow up. Comparison is made to exams dated 09/01/2017 ultrasound and 03/16/2018 ultrasound - [facility]-. Real-time ultrasound and clinical breast exam was performed bilaterally. Both breasts have been surgically removed. Bilateral implants are intact. No cystic or solid mass, architectural distortion, or abnormal acoustic shadowing is detected. No abnormalities were seen sonographically in the right axilla. The biopsy proven cancerous left axillary lymph nodes have decreased in size. The largest was 2.1 cm and is now 1.6 cm. The smaller was 1.4 cm and is now 1.1 cm.IMPRESSION: KNOWN BIOPSY PROVEN MALIGNANCY - FOLLOW-UP RECOMMENDEDA follow-up ultrasound in 6 months is re commended to demonstrate stability. Ninfa Richardson M.D. dm/:09/22/2018 07:31:49 Entry: - 09/22/2018 15:38:25Imaging Technologist: Dorothy Castillo FW, [facility]-FWletter sent: Short Term Follow Up Ultrasound BI-RADS: 6 Kno wn biopsy proven malignancy- MRI CHEST W WO [id number] 10:40:00 Patient Name: SUZETTE MARTINEZ Unit No: [id number] EXAMS: CPT CODE: [id number] MRI CHEST W WO CONT 05583 TECHNIQUE: M ultiplanar multisequence images of the brachial plexus were obtained with and without IV contrast. COMPARISON STUDY: CT dated 05/12/2018 FINDINGS: Left axillary adenopathy, which is PET avid on recent PET/CT measures up to 1.5 cm, suspicious for recurrent disease. Increased T2 signal is seen throughout the brachial plexus. Nodularity is seen within the mid brachial plexus (sagittal T1 postcontrast image 15) on postcontrast images, suspicious for recurrent adenopathy. The discrete no jose are difficult to measure but are suggested on recent PET exam. Pronoun berny edema within the left subscapularis muscle is present, which could be neuropathic in origin. Bilateral breasts augmentation with rupture on the left again noted. Postoperative changes of the left humeral head are noted. The implanted right port catheter is in place. Right subco racoid bursal effusion. IMPRESSION: Left axillary adenopathy as well as nodularity within the left brachial plex us, concerning for recurrent disease. at 1040 Reported and signed by: Derrek Harrison M.D. CC: Jose Luis Lara MD Technologist: CHACHA YANEZ. RT(R) Transcr ibed D/ (1040) Joey/Joey [facility] NAME: SUZETTE MARTINEZ [address] [facility] [address] PHYS: Jose Luis Gomez : 1945 AGE: 72 SEX: F [place], [place] [address] LOC: Y.MRI PHONE #: [phone] EXAM DATE: 07/31/2018 STATUS: DEP CLI FAX #: [phone] RAD #: D/C DT PAGE 1 Signed Report Patient Name: SUZETTE MARTINEZ Unit No: [id number] EXAMS: CPT CODE: [id number] MRI CHEST W [place] CONT [address] <Continued> Orig Print D/T: S: 08/18/2018 (1044) [facility] NAME: SUZETTE MARTINEZ [address] [facility] [address] PHYS: GHAID - Gharbaoui,Jose Luis Seddik : 1945 AGE: 72 SEX: F [place], [place] [address] LOC: Y.MRI PHONE #: [phone] EXAM DATE: 07/31/2018 STATUS: DEP CLI FAX #: [phone] RAD #: D/C DT PAGE 2 Signed Report BLOOD UREA [id number] 13:45:00* Test Item Value Reference Range Interpretation Comments BLOOD UREA NITROGEN (test code = BUN) 12 mg/dL 7-18 N SPECIMEN COMMENT: STAT BUN ORDER BY DR YANEZ COMMENT: STAT CREA GFR ORDE R BY DR MEGAN Alfonso ESTIMATED [id number] 13:45:00* Test Item Value Reference Range Interpretation Comments GLOMERULAR FILTRATION RATE (test code = GFR) 52.5 >60 Unit of measure: mL/min/1.73 u2Tkpiipinw Range:Healthy Adults >90 mL/min/1.73 m2 For Chronic Kidney Disease: Stage II Mild Decrease in GFR 60-90 Stage III Moderate Decrease in GFR 30-59 Stage IV Severe Decrease in GFR 15-29 Stage V Kidney Failure <15 CREATININE (test code = CREAT) 1.03 mg/dL 0.55-1.30 N SPECIMEN COMMENT: STAT BUN ORDER BY DR YANEZ COMMENT: STAT CREA GFR ORDE R BY DR HARRISON- PET/CT [facility]UMOR SK [id number] 16:21:00 FAX: Daniela Rose MD [phone] [place]: B St: REG FAX: Alejandra Lozada MD [phone] Name: SUZETTE MARTINEZ [facility] : 1945 Age/S: 72/F [address] [facility] Unit #: [id number] Loc: [place] [address] Phys: Alejandra Lehman MD Acct: [id number] Dis Date: Status: REG CLI PHONE #: [phone] Exam Date: 05/25/2018 1230 FAX #: [phone] Reason: C77.3,C50.919 EXAMS: CPT CODE: [id number] PET/CT TUMOR SK BS MIDTH [address]35 HISTORY: Restaging breast cancer. COMPARISON: CT chest from May 12, 2018 and PET/CT scan from November 18, 2014. PET/CT SCAN: 11 mCi of FDG administered. Images obtained from the s kull base to the upper thighs 1 hour postinjection. Blood glucose level = 107 mg/dL. HEAD AND NECK: Intense uptake within the brain parenchy ma limited evaluation. Physiologic pharyngeal uptake. CHEST: Port-A-Cath on the right. Axillary lymph node measured 1.7 cm on the left with SUV uptake ranging up to 8 suspicious for recurrence. This is seen on the previous PET scan as well with SUV uptake ranging up to 5 on the pre vious PET scan. No pathologic hilar or mediastinal adenopathy. No lung par enchymal uptake. Lung nodules in the right lower lobe measuring 1.1 and 6. 5 mm in the right middle lobe in paracardiac location with SUV uptake rang ing up to 1.2 which is not suspicious. Bilateral breast implants with intr acapsular rupture on the left. No extra capsular rupture. AB DOMEN: No liver or adrenal metastatic disease. Unremarkable pancreas and s pleen. Excretion from both kidneys without abnormal uptake. No pathologic mesenteric, retroperitoneal or retrocrural adenopathy or uptake. PELVIS: Stasis within the right distal ureter. Excretion into the uri nary bladder. No significant bowel uptake. No pelvic pathologic adenopathy or uptake. MUSCULOSKELETAL: No metastatic disease. IMPRESSION: Pathologic lymph node in the left axilla measured 1.7 cm with SUV uptake ranging up to 8. This is seen on PET/CT scan of October 2014 and measured up to 1.9 cm with SUV uptake ranging up to 5. This is suspicious for recurrence. No other pathologic adenopathy. Lung parenchymal nodules measuring 1.1 in the right base and 6.5 mm in the right middle lobe in paracardiac location with SUV uptake ran ging up to 1.2 which is not suspicious. No distant metastases. PAGE 1 Signed Report (CONTINUED) FAX: Daniela Rose MD [phone] [place]: St: REG FAX: Khari Lozada MD [phone] Name: SUZETTE MARTINEZ [facility] : 1945 Age/S: 72/F [address] [facility] Unit #: [id number] Loc: [place] [address] Phys: Alejandra Lehman MD Acct: [id number] Dis Date: Status: REG CLI PHONE #: [phone] Exam Date: 05/25/2018 1230 FAX #: [phone] Reason: C77.3,C50.919 EXAMS: CPT CODE: [id number] PET/CT TUMOR SK MIDTH 25195 < Continued> at 8363 Reported and signed by: Donnell Velasquez M.D. CC: Daniela Geiger; Alejandra Lehman M.D. Technologist: OTILIO PRASAD James Trnscrd Date/Time/By: 05/25/2018 (7366) : By: [email or web address] Orig Print D/T: S: 05/25/2018 (8342) PAGE 2 Signed Report - CT CHEST W/[id number] 12:15:00 Name: SUZETTE MARTINEZ [facility] : 1945 Age/S: 72 / F [address] Unit #: [id number] Loc: [place] [address] Phys: Alejandra Lehman MD Acct: [id number] Dis Date: Status: REG CLI PHONE #: [phone] Exam Date: 05/12/2018 1030 FAX #: [phone] Reason: MALIGNANT NEOPLASM,OF EXAMS: CPT CODE: [id number] CT CHEST W/CONTRAST 55082 HISTORY: Restaging breast cancer. COMPARISON: CT chest from February 20, [address] chest from December 04, 2017. CT chest with contrast: 100 mL of Isovue-370. Automated exposure control. No aortic dissection. Borderline aneurysmal ascending aorta at 3.6 cm. Descending aorta is not aneurysmal. Well-opacified SVC and the neck vasculature. Port-A-Cath on the right with the tip in the SVC. Thyroid glands are unremarkable. No pathologic adenopathy within the hilum and the mediastinum. Axillary clips on the left. Esophageal wall is not thickened. Cardiac silhouette is mildly enlarged without pericardial effusion. Visualized upper abdomen demonstrating 1.5 mm low- attenuation lesion visible in the caudate lobe of the liver. Correlate with CT abdomen and pelvis for further characterization. Similar lesions in the dome as well are barely visible. The subcutaneous tissues and the musculature are normal with bilateral breast implants. No extra capsular implant rupture. Intracapsular rupture suspected on the left side. No lytic or blastic lesions are noted within the bony skeleton. DJD. The right lateral basal pleural-based noncalcified posterior lung nodule is stable at 1.1 cm. Additional Nodule in the right posterior paracardiac location measuring 6.2 mm. No additional nodules. No bronchiectasis, honeycombing or fibrosis or endobronchial lesions. IMPRESSION: Stable pleural-based 1.1 cm posterior right lower lobe lung nodule. New nodule in the right paracardiac location posteriorly measuring 6.2 mm. Low-attenuation lesions in the dome of the liver and the caudate lobe of the liver measuring up to 1.5 cm and appear suspicious. Correlate with CT scan of the abdomen and pelvis. at 1215 Reported and signed by: Donnell Velasquez M.D. PAGE 1 Signed Report (CONTINUED) Name: SUZETTE MARTINEZ [facility] : 1945 Age/S: 72 / F [address] Unit #: [id number] Loc: [place] [address] Phys: Maude Lehman MD Acct: [id number] Dis Date: Status: REG CLI PHONE #: [phone] Exam Date: 05/12/2018 1030 FAX #: [phone] Reason: MALIGNANT NEOPLASM,OF EXAMS: CPT CODE: [id number] CT CHEST W/ CONTRAST 21317 <Continued> CC: Daniela Geiger; Alejandra Lehman M.D. Technologist:Madan Rich RT(R),(MR),(CT); CTDI: DLP: Trnscb Date/Time: 05/12/2018 (121) t.SDR.TH4 Orig Print D/T: S: 05/12/2018 (1218) CTDI: DLP: PAGE 2 Signed Report - MRI BRACHIAL [id number] 15:31:00 FAX: Daniela Rose MD [phone] [place]: B St: REG FAX: Alejandra Lozada MD [phone] Name: SUZETTE MARTINEZ [facility] : 1945 Age/S: 72/F [address] Unit #: [id number] Loc: [place] [address] Phys: Alejandra Lehman MD Acct: [id number] Dis Date: Status: REG CLI PHONE #: [phone] Exam Date: 04/13/2018 1515 FAX #: [phone] Reason: G54.0 EXAMS: CPT CODE: [id number] MRI BRACHIAL PLEXUS 15865 HISTORY: Left arm weakness TECHNIQUE: Multiplanar multisequence MRI of the left brachial plexus with/without contrast. COMPARISON: None FINDINGS: Limited examination due to poor fat saturation related to patient positioning on her side as well as left humeral head metal implant. Left brachial plexus is grossly normal in configuration. No intrinsic neural mass. No mass effect/impingement is observed in the interscalene, costoclavicular, or retropectoral spaces. No atrophy or edema of the left shoulder girdle musculature. Degenerative changes of the cervical spine with foraminal stenosis, recommend dedicated cervical spine MRI. 3.4 cm spiculated mass density within the left axilla. IMPRESSION: 1. No evidence of i mpingement of the left brachial plexus. 2. No evidence of deformation of the left shoulder girdle. 3. 3.4 cm spiculated mass density within the left axilla; correlate clinically. at 1531 Reported and signed by: Sherri Rand D.O. CC: Daniela Geiger; Alejandra mcnamara M.D. Technologist: RT YESSENIA - JEANA Trnscrd Date/Time/By: 04/13/2018 (153) : By: [email or web address] Orig Print D/T: S: 04/13/2018 (6314) PAGE 1 Signed Report BREAST ULTRASOUND BILATERAL 2018-03-17 08:37:56- BREAST ULTRASOUND BILATERALULTRASOUND OF BOTH BREASTS AND RIGHT AXILLA: 03/16/2018CLINICAL: Followup to previous exam. Comparison is made to exams dated 09/01/2017 ultrasound, 03/04/2017 ultrasound, and 05/24/2016 ultrasound - [facility]-. Real-time ultrasound was performed bilaterally. Both breasts have been surgically removed. Bilateral implants are intact. No cystic or solid mass, architectural distortion, or abnormal acoustic shadowing detected. There is a 2.1 cm lymph node in the left axilla that has slightly decreased in size. No abnormalities were seen sonographically in the right axilla. IMPRESSION: KNOWN BIOPSY PROVEN MALIGNANCY - FOLLOW-UP RECOMMENDEDThe 2 cm lymph node was a known biopsy positive malignancy. A follow-up ultrasound in 6 months is recommended to demonstrate stability. Ninfa Richardson M.D. dm/:03/17/2018 08:37:56 Entry: - 03/17/2018 14:08:05Imaging Technologist: Alisia PULIDO, [facility]-FWletter sent: Short Term Follow Up Ultrasound BI-RADS: 6 Known biopsy proven malignancy
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
[2019-11-29] MEDS ORDERED: ONDANSETRON HCL INJ 2MG/ML 2ML 2 MG/ML VIAL IV STA (17:21)
[2019-11-29] MEDS ORDERED: MORPHINE SULFATE INJ 4 MG/ML INJ 1ML IV ONE (17:30)
--- NOTE | 2019-11-29 17:33 | Emergency Department Note ---
History of Present Illnes History of Present Illness Chief Complaint: General Medicine Complaints History of Present Illness This is a 74 year old female Chief Complaint Comment PATIENT IN FROM HOME WITH COMPLAINTS OF SLAMMING THE TIPS OF THE FINGERS OF HER LEFT HAND IN THE DOOR; RATES PAIN 4/10, APPEARS IN NO DISTRESS, RESP EVEN AND NONLABORED, AMBULATORY WITHOUT ASSISTANCE . Historian: Patient Arrival Mode: Car Onset (how long ago): day(s) Location: LEFT HAND Quality: DULL Radiation: Denies non-radiation, Denies back, Denies neck, Denies extremity, Denies abdomen, Denies periumbilical, Denies flank, Denies proximal, Denies distal, Denies other Severity: mild Onset quality: sudden Duration (how long): day(s) (1) Timing of current episode: constant Progression: unchanged Chronicity: new Context: Denies recent illness, Denies recent surgery, Denies recent immobilization, Denies recent travel, Denies trauma/injury, Denies new medications, Denies hx of DVT/PE, Denies non-compliance w/ medications, Denies other Relieving factors: none Exacerbating factors: none Associated symptoms: Denies denies other symptoms, Denies confusion, Denies chest pain, Denies cough, Denies diaphoresis, Denies fever/chills, Denies headaches, Denies loss of appetite, Denies malaise, Denies nausea/vomiting, Denies rash, Denies seizure, Denies shortness of breath, Denies syncope, Denies weakness, Denies other Past Medical/Family History Physician Review I have reviewed the patient's past medical and family history. Any updates have been documented here. Past Medical History Recent Fever: No Clinical Suspicion of Infectio: No New/Unexplained Change in Ment: No Past Medical History: Cancer Other Medical History: BREAST CANCER Social History Smoking Cessation: Never Smoker Counseling Performed: No Alcohol Use: None Any Illegal Drug Use: No Physically hurt or threatened: No Other Any Pre-Existing Lines (PICC,: No Review of Systems Review of Systems Constitutional: Reports no symptoms EENTM: Reports no symptoms Cardiovascular: Reports no symptoms Respiratory: Reports no symptoms Gastrointestinal: Reports no symptoms Genitourinary: Reports no symptoms Musculoskeletal: Reports as per HPI Integumentary: Reports no symptoms Neurological: Reports no symptoms Psychological: Reports no symptoms Endocrine: Reports no symptoms Hematological/Lymphatic: Reports no symptoms Physical Exam Related Data Allergies: Coded Allergies: latex (Verified Allergy, Unknown, RASH WITH SKIN PROBLEMS, 11/29/19) Triage Vital Signs Vital Signs Date Time Temp Pulse Resp B/P (MAP) Pulse Ox O2 Delivery O2 Flow Rate FiO2 11/29/19 14:14 97.9 113 20 124/99 99 Room Air Vital signs reviewed: Yes Physical Exam CONSTITUTIONAL Constitutional: Present well-developed, Present well-nourished HENT HENT: Present normocephalic, Present atraumatic, Present oropharynx clear/moist, Present nose normal HENT L/R: Present left ext ear normal, Present right ext ear normal EYES Eyes: Reports PERRL, Reports conjunctivae normal NECK Neck: Present ROM normal PULMONARY Pulmonary: Present effort normal, Present breath sounds normal CARDIOVASCULAR Cardiovascular: Present regular rhythm, Present heart sounds normal, Present capillary refill normal, Present normal rate GASTROINTESTINAL Abdominal: Present soft, Present nontender, Present bowel sounds normal GENITOURINARY Genitourinary: Present exam deferred SKIN Skin: Present warm, Present dry MUSCULOSKELETAL Musculoskeletal: Present ROM normal, Present other (LEFT HAND LACERATION) NEUROLOGICAL Neurological: Present alert, Present oriented x 3, Present no gross motor or sensory deficits PSYCHOLOGICAL Psychological: Present mood/affect normal, Present judgement normal Results Imaging Imaging results reviewed: Yes Procedures Laceration Laceration: Laceration 1 Site: hand Side: left Size (cm): 2 Description: linear Depth: simple, single layer Skin layer closed with: other (DERMABOND) Assessment & Plan Medical Decision Making MDM ABRASION LACERATION Reassessment Reassessment time: 17:32 Reassessment BETTER Assessment & Plan Final Impression: (1) Laceration of left hand Last Vital Signs Date Time Temp Pulse Resp B/P (MAP) Pulse Ox O2 Delivery O2 Flow Rate FiO2 11/29/19 17:09 98.1 87 16 141/70 99 Room Air Medications in the ED Morphine Sulfate 4 mg ONCE ONCE IV ; Start 11/29/19 at 17:30; Stop 11/29/19 at 17:31; Status UNV Ondansetron HCl 4 mg NOW STAT IV ; Start 11/29/19 at 17:21; Stop 11/29/19 at 17:22; Status UNV ROEL UP MD Nov 29, 2019 17:33
== END 2019-11-29 17:40 | disposition home or self-care (01) ==
LOC: ER 14:30
DX: S61.412A Laceration without foreign body of left hand, initial encounter (principal); W23.1XXA Caught, crushed, jammed, or pinched between stationary objects, initial encounter; Y92.008 Other place in unspecified non-institutional (private) residence as the place of occurrence of the external cause; Z85.3 Personal history of malignant neoplasm of breast
CPT/HCPCS: 99283

== ENCOUNTER → 2020-05-03 | Day surgery (SDC) | payer MEDICARE, OTHER ==
[~2020-05-03] MED LIST: CYMBALTA30 MG; FERROUS FUMARA324 MG PO; HERCEPTIN150 MG; IRBESARTAN-HCT1 EACH; KADCYLA; LIDOCAINE HCL 2% LOCAL INJ 5 ML SDV VIAL INJ ONE; MULTI-VITAMIN1 EACH PO; NEURONTIN400 MG PO; OMEPRAZOLE40 MG PO; PROPOFOL IV EMULSION 10 MG/ML 20 ML VIAL ONE; VITAMIN C500 MG PO; VITAMIN D32400 UNIT/
[2020-05-03 15:30] VITALS: BP 111/78
== END | disposition home or self-care (01) ==
LOC: OR 10:11
PROVIDERS: ATTEND Internal Medicine Gastroenterology
DX: Z09 Encounter for follow-up examination after completed treatment for conditions other than malignant neoplasm (principal); Z86.010 Personal history of colon polyps; K57.30 Diverticulosis of large intestine without perforation or abscess without bleeding; K21.9 Gastro-esophageal reflux disease without esophagitis; C22.9 Malignant neoplasm of liver, not specified as primary or secondary; C50.919 Malignant neoplasm of unspecified site of unspecified female breast; C49.12 Malignant neoplasm of connective and soft tissue of left upper limb, including shoulder; C34.90 Malignant neoplasm of unspecified part of unspecified bronchus or lung; G47.33 Obstructive sleep apnea (adult) (pediatric); D50.8 Other iron deficiency anemias; R20.0 Anesthesia of skin; I10 Essential (primary) hypertension; Z91.040 Latex allergy status; Z01.810 Encounter for preprocedural cardiovascular examination; Z01.812 Encounter for preprocedural laboratory examination; Z20.822 Contact with and (suspected) exposure to COVID-19; Z68.31 Body mass index [BMI] 31.0-31.9, adult; Z92.21 Personal history of antineoplastic chemotherapy; Z92.3 Personal history of irradiation
CPT/HCPCS: 45378; 93005; J2001; J2704; U0002